=== PATIENT | female | born 1985 | race Caucasian/White ===

== ENCOUNTER 2016-08-12 13:23 | Emergency (ER) | payer SELFPAY ==
[~2016-08-12] VITALS: Ht 167.6 cm; Wt 138.8 kg
[~2016-08-12 13:23] MED LIST: ACYC200O4 PO; CALC-870 PO; CEFD300C3 PO; CPR500T PO; CTRZ10T PO; CYCL10TA9 PO; DIPH25CA79 PO; DOCU100C37 PO; FLUC150T PO; HYDR-1231 PO; HYDR-3004 PO; HYDR-3812 PO; HYDR-707 PO; HYDR118S10 PO; HYDR25CA5 PO; HYDR50TA76 PO; IBP600T1 PO; IBUP-1773 PO; LEVO750T6 PO; MAGN400T29 PO; MECL25TA56 PO; METR500T PO; NAPR-243 PO; NAPR220C11 PO; NITR-65 PO; NITR100C3 PO; OXYC-12 PO; PRED20TA PO; PREN-148 PO; PREN1TAB39 PO; PRM25T PO; PROM12.59 PO; SULF1TAB38 PO; TRM50T PO
--- OUTSIDE RECORDS SUMMARY | 2016-08-12 13:29 | XMS REPORT | Continuity of Care Document ---
Author Author Interface Organization Interface Address Unknown Phone Unavailable Problems Problem Status Onset Date Classification Date Reported Comments Source Final: Encounter for routine follow-up 12/04 [facility] Final: Other specified diseases and conditions complicating , childbirth and the puerperium 12/05/2015 [facility] Final: Localized edema 12/05/2015 [facility] Final: Diseases of the nervous system complicating the puerperium 12/05/2015 [facility] Final: Benign intracranial hypertension 12/05/2015 [facility] Obesity, unspecified(<content ID="[id number]">Confirmed</content>)<sup>1</sup > Active Problem 12/05/2015 Added based on documentation of BMI=55.3. [facility] Medications Medication Details Route Status Patient Instructions Ordering Provider Order Date Source Allergies, Adverse Reactions, Alerts Substance Category Reaction Severity Reaction type Status Date Reported Comments Source Adhesive Bandage Assertion Drug allergy [facility] Benzocaine Assertion Drug allergy [facility] cephalosporins Assertion Drug allergy [facility] Latex Assertion Drug allergy [facility] Macrobid Assertion Drug allergy [facility] penicillins Assertion Drug allergy [facility] sulfa drugs Assertion Drug allergy [facility] Immunizations Immunization Date Given Site Status Last Updated Comments Source No data available for this section No data available for this section [facility] Results Order Name Results Value Reference Range Date Interpretation Comments Source Urinalysis UA Bacteria 2+ </br>*ABN* </br>(11/30/15 2:14 PM) 11/29 [facility] Urinalysis UA WBC 5-10 /HPF 0 - 2 11/30/2015 [facility] Urinalysis UA Squam Epith 10- 25 /HPF 11/30/2015 [facility] Urinalysis UA RBC 10-25 /HPF 0 - 3 11/30/2015 [facility] Urinalysis UA Color Yellow </br>(11/30/15 2:14 PM) Yellow 11/30/2015 [facility] Urinalysis UA pH 5.5 </br>(11/30/15 2:14 PM) 4.5 - 8.0 11/30/2015 [facility] Urinalysis UA Appearance Sl Cldy </br>(11/30/15 2:14 PM) Clear 11/30/2015 [facility] Urinalysis UA Leuk Est Small </br>*ABN* </br>(11/30/15 2:14 PM) Negative 11/30/2015 [facility] Urinalysis UA Ketones Negative </br>(11/30/15 2:14 PM) Negative 11/30/2015 [facility] Urinalysis UA Glucose Negative </br>(11/30/15 2:14 PM) Negative 11/30/2015 [facility] Urinalysis UA Protein Negative </br>(11/30/15 2:14 PM) Negative 11/30/2015 [facility] Urinalysis UA Sp Grav 1.015 1.003 - 1.030 11/30/2015 [facility] Urinalysis UA Urobilinogen 0.2 mg/dL 0.2 - 1.0 2015 [facility] Urinalysis UA Nitrite Negative </br>(11/30/15 2:14 PM) Negative 11/30/2015 [facility] Urinalysis UA Bili Negative </br>(11/30/15 2:14 PM) Negative 11/30/2015 [facility] Urinalysis UA Blood Large </br>*ABN* </br>(11/30/15 2:14 PM) Negative 11/30/2015 [facility] US Doppler Venous Leg Bilat [id number] US Doppler Venous Leg Bilat [id number] Name: MARI EPPS Ultrasound Accession Number Exam Exam Date/Time Ordering Physician [id number] US Doppler Venous Leg 11/30/2015 14:50 CDT Toi Farooq B Bilat CPT code 63725 Reason For Exam (US Doppler Venous Leg Bilat) rule out DVT/ swelling/ edema Report _ Please refer to the Vascular section in Powerchart for full dictation. Final Report ELECTRONIC SIGNATURE Signed: 12.01.2015 08:36 Signed by: Libby Radiologist Technologist: Carri Cabezas ARDMS, RVT 11/30/2015 [facility] ANALYTICAL MANAGER Clinic Note ANALYTICAL MANAGER Clinic Note Patient: MARI EPPS Age: 30 years Sex: Female : 89 Associated Diagnoses: None Author: Elena Chaparro History of Present Illness S: Ms Epps is a 30 yo who delivered by on 11/26/15 at [facility] in [facility] with DR. Moffett and presents today for lower extremity swelling. She has noted mild, bilateral lower extremity swelling throughout her that has worsened postop. Edema is worse on the left than the right and persists despite elevation. Denies history of DVT. Reports incisional pain controlled with PO meds. Denies fever, SOB, orthopnea, vision changes, or upper quadrant pain. PNC at [place], [place]. Following concerns for congenital heart defects, her son was flown to [facility]. She is in [place] as he undergoes treatment. PMH: Intracranial Hypertension, on diamox but d/c due to PSH: 2 C-sections, cryocautery of cervix at 21. OB: - , term, birthweight 7.9lbs G2 - SAB G3 - , term, birthweight 10lbs, complicated by macrosomia. G4 - , term, birthweight 10lbs, complicated by macrosomia and polyhydramnios. Found to have congenital heart defects on delivery. Market Research Intern: Hx of HPV and Herpes, not on tx currently but was treated during . No h/o abn paps. So: Denies drugs, alcohol, tobacco use. Meds: colace, tylenol w/ codeine, and ibuprofen All: Macrobid, benzocaine, latex, PCN, cephalosporins, and sulfa drugs FH: Father has hx of CVA w/ IVC filter, mother has unknown cardiac condition, maternal aunt had blood clots from unknown etiology. Physical Examination VS/Measurements Vital Signs 11/30/15 14:02 Temperature Oral 97.7 DegF Heart Rate 88 bpm Resp. Rate 18 BRMIN Systolic BP 125 mmHg Diastolic BP 71 mmHg Gen: NAD CV: RRR Pulm: Clear to auscultation bilaterally Neuro: DTR bilateral patellar 2+, no clonus Abd: mild TTP along incisional site, no evidence of wound separation or hematoma Ext: 2+ edema in R LE extending to the knee, 3+ edema in L LE extending to the knee Review / Management Lower extremity doppler: Negative for DVT bilaterally Impression and Plan A/P: 30 yo s/p rLTCS on 11/25 1. Lower extremity edema - Lower extremity doppler negative for DVT bilaterally. - No evidence of cellulitis on exam. - BP initially elevated during repositioning, normal with appropriate technique and equipment. No symptoms or signs of preeclampsia. Return precautions given and symptoms of preeclampsia reviewed. - Symptoms most likely represent postoperative/ third spacing. Advised elevation and ambulation. Return for localized erythema, skin changes, or worsening symptoms. 2. Intracranial Hypertension - No current symptoms. Not on diuretic during . - Patient desires to follow with Neurology in [place]. Plans to establish care within the week. Declines to speak with [facility] Neurology at this time despite "ER" status and availability of consult. - Advised to return to the ER for severe headache. Pt seen by Cristiano IVEY Patient discussed and examined with Dr. Aide Chaparro MD PGY3 MFM Note Patient had no DVT. At [facility], calling to set up appointment with Neurology. I saw and examined the patient and agree with the plan above. Aide Meyer MD. 11/30/2015 [facility] Health Clinic Note Health Clinic Note PT NAME: Mari Epps ACCT: [id number] : 89 November 30, 2015 CHIEF COMPLAINT: This is a 30 year old female who presents for a follow-up exam. She is accompanied by her mother. HPI: She is status post repeat section delivery @ 37 weeks, 3/7 days in [place], [place] (per Dr. Moffett) on 11/26/2015 secondary to macrosomia and threatened labor. Patients PMH is significant for morbid obesity (BMI per H&P=53) and pseudotumor cerebri for which she was seen at in 2014. She presents today for follow-up visit and to discuss the restarting a diuretic. She complains of increased BLE edema, notes that her shoes and socks leave lines (on her legs) and that it is difficult to flex her BLE. She reports achiness in her BLE, otherwise denies pain or tenderness. She has been staying overnight in the [facility], and rests at the [facility] as her infant (Ayad Ellsworth) is in stable condition in the Intensive Care Nursery. She states that her incision seems to be healing well, denies concerns related to incision. Patient reports that she is not expressing breast milk, denies problems with cessation. She tells me that she chose not to breastfeed secondary to desire to restart pre- medications for pseudotumor cerebri. Patient denies SY, vision changes. Patient also denies RUQ or epigastric pain. Patient reports that she is taking pain medications, is taking IBU every 6 hours and takes tablet of hydrocodone every 2-3 hours; she denies pain at this time. Patient denies bowel/bladder symptoms; she reports small amount of vaginal bleeding. Patient has not been sexually active, planning Nexplanon placement at 6 weeks PP. She denies blues or depressive symptoms. Hgb on POD#1 was 9.4mg/dL. All other ROS not commented on or stated in HPI/PMH are unremarkable. ALLERGIES/ADVERSE REACTIONS: Adhesive bandage, benzocaine, cephalosporin, latex , macrobid, penicillin, sulfa CURRENT MEDICATIONS: Colace 100 mg PRN, IBU 600mg every 6 hours PRN, Hydrocodone /Acetaminophen 5/325mg tablet every 2-3 hours PRN Physical Exam: Vitals/Ht/Wt Current Weight: 152.1 kg Med Calc Weight: 152.1 kg Heart Rate: 71 bpm RespiratoryRate: 18 BR/min Oxygen Saturation: 99 % Cuff Monitored Blood Pressure: 137 mmHg / 82 mmHg Comfort History Comfort Assessment: Current pain Pain Characteristics: Patient able to report VAS Control: VAS Total Pain Calculation: 3 Pain Location: Leg, lower Pain Laterality: Bilateral Pain Description: Dull Pain Onset: 11/26/15 Pain Frequency: Constant Pain Aggravating Factors: Ambulating Pain Negatively Impacts: Daily life Pain Interventions: Elevate Visual Analogue Scale *Visual Analogue score: 3 General: Well-appearing, in no acute distress HEENT/Skin/Neuro: grossly intact Abdomen: soft, non-tender; anthony-incisional tissue with erythema along area consistent with adhesive tape related to surgery, per patient this is resolving ; incision healing well, without evidence of erythema, induration or exudate Extremities: BLE with pitting edema, without clonus, negative Homans sign, DTRs 1+/4 ASSESSMENT/PLAN: 1. 30 year old female, s/p repeat section delivery 2. 4 days 3. History of pseudotumor cerebri 4. Morbid obesity Reviewed self-care, healthy eating habits, physical activity, sleep hygiene, emotional well-being. Reviewed PE with Dr. Meyer, who also saw patient. Recommend that patient follow-up with a neurologist she has been seen at will send urgent referral to facilitate visit. Will send patient to [facility] for imaging of BLE due to patient report of discomfort and inability to flex extremities. Brielle Dowling, MSN, RN, TRUCK DRIVER RUBBISH COLLECTOR, INTERNAL MEDICINE PHYSICIAN ASSISTANT-BC Provider Name: Brielle Dowling RN, TRUCK DRIVER RUBBISH COLLECTOR</br> Electronically Signed On: 11/29 01:53 PM</br> 11/30/2015 Provider Name: Brielle Dowling RN, TRUCK DRIVER RUBBISH COLLECTOR Electronically Signed On: 11/30/15 01:53 PM [facility] Inpatient Clinical Summary < table cellspacing="1" cellpadding="0" width="95%"><colgroup><col width="35%"></ col><col width="35%"></col><col width="30%"></col></colgroup><tbody><tr><td align="left"><content styleCode="Bold">Title:</content>Inpatient Clinical Summary</td><td align="left"><content styleCode="Bold">Author:</content> Julee Ji</td><td align="left"><content styleCode="Bold">Date:</content>11/30/15</td></tr></tbody></table><table cellspacing="1" cellpadding="0" width= "95%"><tbody><tr><td>[facility] Patient Discharge Instructions Visit Information/Informacion de Visita Name/Nombre:MARI EPPS Date of /Fecha de Nacimiento: 1985 12:00 AM Current Date/Time/Fecha/Hora Actual: 11/30/15 16:11:21 Physicians/Medicos Clinic Provider/Proveedor de Clinica: Resident Provider: Toi Farooq Attending Provider: Mayo Crawford Discharge Diagnosis/Diagnstico al ser dado de drew: The [facility] would like to thank you for allowing us to assist you with your healthcare needs. The following includes patient education materials and information regarding your injury/illness. [facility] quisieran agradecerle por permitirnos ayudarlo con lillie necesidades sobre ochoa cuidado de sergio. A continuacin incluimos materiales para la educacin al paciente e informacin sobre ochoa alejandra/enfermedad. Discharge Arrangements Language Spoken: Guinean Bead Forming Machine Set Up Operator Needed at Discharge: No Discharge To, OB: Home independently Pain Present Upon Discharge: No Acuity, OB: Patient in stable condition at discharge DC Status IV Discontinued: N/A Rhogam Given?: N/A Medication List/Lista de Medicamentos Please take only the medications listed below/Por favor tome slo los medicamentos mostrados a continuacin Please contact your primary care physician to discuss all medications. Por favor comunquese con ochoa doctor de cabecera para discutir todos lillie medicamentos Additional Patient Information/Informacion Adicional del Paciente: Height: 5 ft 6 in Weight: 343 lb 15 oz Blood Pressure: 129/73 mmHg Future Orders Placed Today/Ordenes de Doctor Order Name Details Ordering Provider Discharge Patient Request Requested Start Date/Time: 11/30/15 15:46:00 Discharge Location: Home Discharge Diet: Regular Diet Discharge Activity: Activity As Tolerated Special Instructions: Return for temperature >100.4 degrees, vaginal bleeding greater than 2 maxi pads in 1 hour over 4 hours, abdominal pain, intractable nausea or vomiting, or other concerns. Bhupinder Leija If you haven't been contacted for an appointment within two weeks, please call for [facility] or for [facility]. Por favor llame al [facility] o [facility] , en sherri no lo hayan llamado dentro de dos semanas para darle caitlyn reuben. Your Upcoming Appointments/Lillie proximas citas Please bring all home medications to every visit with us at [facility]. Your safety and education around medications is our goal. (Prescription , non prescription and herbal supplements) Date Time Location Appointment Type Provider No Appointments found BONITA EPPSASIA has been given the following list of follow-up instructions, prescriptions, and patient education materials/ se le sy dado la siguiente lista de instrucciones de seguimiento, recetas y materiales de educacin al paciente: Patient Follow-up Information/Informacion de seguimiento del paciente Prescription leaflets, if any, will display below/ Si hay algunas recetas, se mostrarn a continuacin Patient Instructions/Instrucciones para el Paciente All smokers are encouraged to stop smoking. If you would like help, talk to your doctor or call The [place] Tobacco Quitline at 2-045-EZBW-NOW (7-823-406- 5950). If you have thoughts about committing suicide or otherwise hurting yourself, please call 911 or call Crisis Line at . Deep Vein Thrombosis A deep vein thrombosis (DVT) is a blood clot that develops in a deep vein. A DVT is a clot in the deep, larger veins of the leg, arm, or pelvis. These are more dangerous than clots that might form in veins near the surface of the body. A DVT can lead to complications if the clot breaks off and travels in the bloodstream to the lungs. A DVT can damage the valves in your leg veins, so that instead of flowing upwards, the blood pools in the lower leg. This is called post-thrombotic syndrome, and can result in pain, swelling, discoloration, and sores on the leg. Once identified, a DVT can be treated. It can also be prevented in some circumstances. Once you have had a DVT, you may be at increased risk for a DVT in the future. CAUSES Blood clots form in a vein for different reasons. Usually several things contribute to blood clots. Contributing factors include: The flow of blood slows down. The inside of the vein is damaged in some way. The person has a condition that makes blood clot more easily. Some people are more likely than others to develop blood clots. That is because they have more factors that make clots likely. These are called risk factors. Risk factors include: Older age, especially over 75 years old. Having a history of blood clots. This means you have had one before. Or, it means that someone else in your family has had blood clots. You may have a genetic tendency to form clots. Having major or lengthy surgery. This is especially true for surgery on the hip, knee, or belly (abdomen ). Hip surgery is particularly high risk. Breaking a hip or leg. Sitting or lying still for a long time. This includes long distance travel, paralysis, or recovery from an illness or surgery. Cancer, or cancer treatment. Having a long, thin tube (catheter ) placed inside a vein during a medical procedure. Being overweight (obese ). and childbirth. Hormone changes make the blood clot more easily during . The fetus puts pressure on the veins of the pelvis. There is also risk of injury to veins during delivery or a caesarean. The risk is at its highest just after childbirth. Medicines with the female hormone estrogen. This includes control pills and hormone replacement therapy. Smoking. Other circulation or heart problems. SYMPTOMS When a clot forms, it can either partially or totally block the blood flow in that vein. Symptoms of a DVT can include: Swelling of the leg or arm, especially if one side is much worse. Warmth and redness of the leg or arm, especially if one side is much worse. Pain in an arm or leg. If the clot is in the leg, symptoms may be more noticeable or worse when standing or walking. The symptoms of a DVT that has traveled to the lungs (pulmonary embolism, PE ) usually start suddenly, and include: Shortness of breath. Coughing. Coughing up blood or blood-tinged phlegm. Chest pain. The chest pain is often worse with deep breaths. Rapid heartbeat. Anyone with these symptoms should get emergency medical treatment right away. Call your local emergency services (911 in [place] if you have these symptoms. DIAGNOSIS If a DVT is suspected, your caregiver will take a full medical history and carry out a physical exam. Tests that also may be required include: Blood tests, including studies of the clotting properties of the blood. Ultrasonography to see if you have clots in your legs or lungs. X-rays to show the flow of blood when dye is injected into the veins ( venography ). Studies of your lungs, if you have any chest symptoms. PREVENTION Exercise the legs regularly. Take a brisk 30 minute walk every day. Maintain a weight that is appropriate for your height. Avoid sitting or lying in bed for long periods of time without moving your legs. Women, particularly those over the age of 35, should consider the risks and benefits of taking estrogen medicines, including control pills. Do not smoke, especially if you take estrogen medicines. Long distance travel can increase your risk of DVT. You should exercise your legs by walking or pumping the muscles every hour. In-hospital prevention: Many of the risk factors above relate to situations that exist with hospitalization, either for illness, injury, or elective surgery. Your caregiver will assess you for the need for venous thromboembolism prophylaxis when you are admitted to the hospital. If you are having surgery, your surgeon will assess you the day of or day after surgery. Prevention may include medical and nonmedical measures. TREATMENT Treatment for DVT helps prevent and disability. The most common treatment for DVT is blood thinning (anticoagulant ) medicine, which reduces the blood's tendency to clot. Anticoagulants can stop new blood clots from forming and old ones from growing. They cannot dissolve existing clots. Your body does this by itself over time. Anticoagulants can be given by mouth, by intravenous (IV) access, or by injection. Your caregiver will determine the best program for you. Heparin or related medicines (low molecular weight heparin) are usually the first treatment for a blood clot. They act quickly. However, they cannot be taken orally. Heparin can cause a fall in a component of blood that stops bleeding and forms blood clots (platelets ). You will be monitored with blood tests to be sure this does not occur. Warfarin is an anticoagulant that can be swallowed (taken orally ). It takes a few days to start working, so usually heparin or related medicines are used in combination. Once warfarin is working, heparin is usually stopped. Less commonly, clot dissolving drugs (thrombolytics ) are used to dissolve a DVT. They carry a high risk of bleeding, so they are used mainly in severe cases, where a life or limb is threatened. Very rarely, a blood clot in the leg needs to be removed surgically. If you are unable to take anticoagulants, your caregiver may arrange for you to have a filter placed in a main vein in your belly (abdomen ). This filter prevents clots from traveling to your lungs. HOME CARE INSTRUCTIONS Take all medicines prescribed by your caregiver. Follow the directions carefully. Warfarin. Most people will continue taking warfarin after hospital discharge. Your caregiver will advise you on the length of treatment (usually 3 6 months, sometimes lifelong). Too much and too little warfarin are both dangerous. Too much warfarin increases the risk of bleeding. Too little warfarin continues to allow the risk for blood clots. While taking warfarin, you will need to have regular blood tests to measure your blood clotting time. These blood tests usually include both the prothrombin time (PT) and international normalized ratio (INR) tests. The PT and INR results allow your caregiver to adjust your dose of warfarin. The dose can change for many reasons. It is critically important that you take warfarin exactly as prescribed, and that you have your PT and INR levels drawn exactly as directed. Many foods, especially foods high in vitamin K can interfere with warfarin and affect the PT and INR results. Foods high in vitamin K include spinach, kale , broccoli, cabbage, rhiannon and turnip greens, brussels sprouts, peas, cauliflower, seaweed, and parsley as well as beef and pork liver, green tea, and soybean oil. You should eat a consistent amount of foods high in vitamin K. Avoid major changes in your diet, or notify your caregiver before changing your diet. Arrange a visit with a dietitian to answer your questions. Many medicines can interfere with warfarin and affect the PT and INR results. You must tell your caregiver about any and all medicines you take, this includes all vitamins and supplements. Be especially cautious with aspirin and anti-inflammatory medicines. Ask your caregiver before taking these. Do not take or discontinue any prescribed or [id number] medicine except on the advice of your caregiver or pharmacist. Warfarin can have side effects, primarily excessive bruising or bleeding. You will need to hold pressure over cuts for longer than usual. Your caregiver or pharmacist will discuss other potential side effects. Alcohol can change the body's ability to handle warfarin. It is best to avoid alcoholic drinks or consume only very small amounts while taking warfarin. Notify your caregiver if you change your alcohol intake. Notify your dentist or other caregivers before procedures. Activity. Ask your caregiver how soon you can go back to normal activities. It is important to stay active to prevent blood clots. If you are on anticoagulant medicine, avoid contact sports. Exercise. It is very important to exercise. This is especially important while traveling, sitting or standing for long periods of time. Exercise your legs by walking or by pumping the muscles frequently. Take frequent walks. Compression stockings. These are tight elastic stockings that apply pressure to the lower legs. This pressure can help keep the blood in the legs from clotting. You may need to wear compressions stockings at home to help prevent a DVT. Smoking. If you smoke, quit. Ask your caregiver for help with quitting smoking. Learn as much as you can about DVT. Knowing more about the condition should help you keep it from coming back. Wear a medical alert bracelet or carry a medical alert card. SEEK MEDICAL CARE IF: You notice a rapid heartbeat. You feel weaker or more tired than usual. You feel faint. You notice increased bruising. You feel your symptoms are not getting better in the time expected. You believe you are having side effects of medicine. SEEK IMMEDIATE MEDICAL CARE IF: You have chest pain. You have trouble breathing. You have new or increased swelling or pain in one leg. You cough up blood. You notice blood in vomit, in a bowel movement, or in urine. MAKE SURE YOU: Understand these instructions. Will watch your condition. Will get help right away if you are not doing well or get worse. Document Released: 07/16/2006 Document Revised: 04/09/2013 Document Reviewed: [facility] Patient Information 2014 [employer]. Venous Thromboembolism, Prevention A venous thromboembolism is a blood clot that forms in a vein. A blood clot in a deep vein is called a deep venous thrombosis (DVT). A blood clot in the lungs is called a pulmonary embolism (PE). Blood clots are dangerous and can cause . Blood clots can form in the: Lungs. Legs. Arms. CAUSES A blood clot can form in a vein from different conditions. A blood clot can develop due to: Blood flow within a vein that is sluggish or very slow. Medical conditions that make the blood clot easily. Vein damage. RISK FACTORS Risk factors can increase your risk of developing a blood clot. Risk factors can include: Smoking. Obesity. Age. Immobility or sedentary lifestyle. Sitting or standing for long periods of time. Chronic or long-term bedrest. Medical or past history of blood clots. Family history of blood clots. Hip, leg, or pelvis injury or trauma. Major surgery, especially surgery on the hip, knee, or abdomen. and childbirth. control pills and hormone replacement therapy. Medical conditions such as Peripheral vascular disease (PVD). Diabetes. Cancer. SYMPTOMS Symptoms of VTE can depend on where the clot is located and if the clot breaks off and travels to another organ. Sometimes, there may be no symptoms. DVT symptoms can include: Swelling of the leg or arm, especially on one side. Warmth and redness of the leg or arm, especially on one side. Pain in an arm or leg. Leg pain may be more noticeable or worse when standing or walking. PE symptoms can include: Shortness of breath. Coughing. Coughing up blood or blood-tinged mucus (hemoptysis ). Chest pain or chest pain with deep breaths (pleuritic chest pain ). Apprehension, anxiety, or a feeling of impending doom. Rapid heartbeat. PREVENTION Exercise regularly. Take a brisk 30 minute walk every day. Staying active and moving around can help prevent blood clots. Avoid sitting or lying in bed for long periods of time. Change your position often, especially during a long trip. Women, especially those over the age of 35, should consider the risks and benefits of taking estrogen medicines. This includes control pills and hormone replacement therapy. Do not smoke, especially if you take estrogen medicines. If you smoke, talk to your caregiver on how to quit. Eat plenty of fruits and vegetables. Ask your caregiver or dietitian if there are foods you should avoid. Maintain a weight as suggested by your caregiver. Wear loose-fitting clothing. Avoid constrictive or tight clothing around your legs or waist. Try not to bump or injure your legs. Avoid crossing your legs when you are sitting. Do not use pillows under your knees unless told by your caregiver. Take all medicines that your caregiver prescribes you. Wear special stockings (compression stockings or LORENE hose) if your caregiver prescribes them. Wearing compression stockings (support hose) can make the leg veins more narrow. This increases blood flow in the legs and can help prevent blood clots. It is important to wear compression stockings correctly. Do not let them bunch up when you are wearing them. TRAVEL Long distance travel can increase the risk of a blood clot. To prevent a blood clot when traveling: You should exercise your legs by walking or by pumping your muscles every hour. To help prevent poor circulation on long trips, stand, stretch, and walk up and down the aisle of your airplane, train, or bus as often as possible to get the blood moving. Do squats if you are able. If you are unable to do squats, raise your foot on the balls of your feet and tighten your lower leg muscles (particularly the calve muscles) while seated. Pointing (flexing and extending) your toes while tightening your calves while seated are also good exercises to do every hour during long trips. They help increase blood flow and reduce risk of DVT. Stay well hydrated. Drink water regularly when traveling, especially when you are sitting or immobile for long periods of time. Use of drugs to prevent DVT during routine travel is not generally recommended. Before taking any drugs to reduce risk of DVT, consult your caregiver. SURGERY AND HOSPITALIZATION People who are at high risk for a blood clot may be given a blood thinning medicine (anticoagulant ) when they are hospitalized even if they are not going to have surgery. A long trip prior to surgery can increase the risk of a clot for patients undergoing hip and knee replacements. Talk to your caregiver about travel plans before your surgery. After hip or knee surgery, your caregiver may give you anticoagulants to help prevent blood clots. Anticoagulants may be given to people at high risk of developing thromboembolism, before, during, or sometimes after surgery, including people with clotting disorders or with a history of past thromboembolism. TRAVEL AFTER SURGERY In orthopedic surgery, the cutting of bones prompts the body to increase clotting factors in the blood. Due to the size of the bones involved in hip and knee replacements, there is a higher risk of blood clotting than other orthopedic surgeries. There is a risk of clotting for up to 46 weeks after surgery. Flying or traveling long distances can increase your risk of a clot. As a result, those who travel long distances may need additional preventive measures after their procedure. Drink only non-alcoholic beverages during your flight, train, or car travel. Alcohol can dehydrate you and increase your risk of getting blood clots. SEEK IMMEDIATE MEDICAL CARE IF: You develop chest pain. You develop severe shortness of breath. You have breathing problems after traveling. You develop swelling or pain in the leg. You begin to cough up bloody mucus or phlegm (sputum ). You feel dizzy or faint. Document Released: 07/04/2010 Document Revised: 04/09/2013 Document Reviewed: [facility] Patient Information 2014 [employer]. Take Charge of Your Health with [facility] Sign up today for [facility] for access to your health records 19/02. [facility] allows you to: Request an appointment Check your lab results Communicate with your providers and care team See provider notes from your visit View immunization records View current medication Sign up Today! Ask your healthcare provider or a [facility] associate for help, or email [email or web address]</td></tr></tbody></table> [facility] triage <table cellspacing="1" cellpadding="0" width="95%"><colgroup><col width="35%"></col>< col width="35%"></col><col width="30%"></col></colgroup><tbody><tr><td align= "left"><content styleCode="Bold">Title:</content> triage</td><td align ="left"><content styleCode="Bold">Author:</content>Elena Chaparro</td><td align ="left"><content styleCode="Bold">Date:</content>11/30/15</td></tr></tbody></table ><table cellspacing="1" cellpadding="0" width="95%"><tbody><tr><td> Patient: MARI EPPS Age: 30 years Sex: Female : 89 Associated Diagnoses: None Author: Elena Chaparro History of Present Illness S: Ms Epps is a 30 yo who delivered by on 11/26/15 at [facility] in [facility] with DR. Moffett and presents today for lower extremity swelling. She has noted mild, bilateral lower extremity swelling throughout her that has worsened postop. Edema is worse on the left than the right and persists despite elevation. Denies history of DVT. Reports incisional pain controlled with PO meds. Denies fever, SOB, orthopnea, vision changes, or upper quadrant pain. PNC at [place], [place]. Following concerns for congenital heart defects, her son was flown to [facility]. She is in [place] as he undergoes treatment. PMH: Intracranial Hypertension, on diamox but d/c due to PSH: 2 C-sections, cryocautery of cervix at 21. OB: - , term, birthweight 7.9lbs G2 - SAB G3 - , term, birthweight 10lbs, complicated by macrosomia. G4 - , term, birthweight 10lbs, complicated by macrosomia and polyhydramnios. Found to have congenital heart defects on delivery. Market Research Intern: Hx of HPV and Herpes, not on tx currently but was treated during . No h/o abn paps. So: Denies drugs, alcohol, tobacco use. Meds: colace, tylenol w/ codeine, and ibuprofen All: Macrobid, benzocaine, latex, PCN, cephalosporins, and sulfa drugs FH: Father has hx of CVA w/ IVC filter, mother has unknown cardiac condition, maternal aunt had blood clots from unknown etiology. Physical Examination VS/Measurements Vital Signs 11/30/15 14:02 Temperature Oral 97.7 DegF Heart Rate 88 bpm Resp. Rate 18 BRMIN Systolic BP 125 mmHg Diastolic BP 71 mmHg Gen: NAD CV: RRR Pulm: Clear to auscultation bilaterally Neuro: DTR bilateral patellar 2+, no clonus Abd: mild TTP along incisional site, no evidence of wound separation or hematoma Ext: 2+ edema in R LE extending to the knee, 3+ edema in L LE extending to the knee Review / Management Lower extremity doppler: Negative for DVT bilaterally Impression and Plan A/P: 30 yo s/p rLTCS on 11/25 1. Lower extremity edema - Lower extremity doppler negative for DVT bilaterally. - No evidence of cellulitis on exam. - BP initially elevated during repositioning, normal with appropriate technique and equipment. No symptoms or signs of preeclampsia. Return precautions given and symptoms of preeclampsia reviewed. - Symptoms most likely represent postoperative/ third spacing. Advised elevation and ambulation. Return for localized erythema, skin changes, or worsening symptoms. 2. Intracranial Hypertension - No current symptoms. Not on diuretic during . - Patient desires to follow with Neurology in [place]. Plans to establish care within the week. Declines to speak with [facility] Neurology at this time despite "ER" status and availability of consult. - Advised to return to the ER for severe headache. Pt seen by [facility] Patient discussed and examined with Dr. Aide Chaparro MD PGY3</td></tr></tbody></table><table cellspacing="1" cellpadding ="0" width="95%"><colgroup><col width="10%"></col><col width="90%"></col></ colgroup><tbody><tr><td>Addendum by Aide Meyer on December 01, 2015 13:00</td>< td>MFM Note Patient had no DVT. At [facility], calling to set up appointment with [facility]. I saw and examined the patient and agree with the plan above. Aide Meyer MD.</ td></tr></tbody></table> [facility] Vital Signs Vital Sign Value Date Comments Source Temperature Oral 97.7 [degF] 11/30/2015 [facility] Oxygen Therapy Room air </br>(11/30/15 2:02 PM) 11/30/2015 [facility] Resp. Rate 18 BRMIN 2015 [facility] Heart Rate 88 bpm 11/30/2015 [facility] Systolic BP 125 mmHg 2015 [facility] Diastolic BP 71 mmHg 2015 [facility] Systolic BP 129 mmHg 2015 [facility] Diastolic BP 73 mmHg 2015 [facility] Heart Rate 95 bpm 11/30/2015 [facility] Oxygen Therapy Room air </br>(11/30/15 2:09 PM) 11/30/2015 [facility] Respiratory Rate 18 BR/min [facility] Heart Rate 71 bpm 11/30/2015 [facility] Systolic Blood Pressure Cuff Monitored <content ID=' [id number]'>137</content>/<content ID='[id number]'>82</content> mm[Hg ] 11/30/2015 [facility] Current Weight 152.1 kg 11/29 [facility] Encounters Location Location Details Encounter Type Encounter Number Reason For Visit Attending Provider ADM Date DC Date Status Source [facility] OB Triage [id number] Mayo Mccartney 11/2912/01/2015 [facility] CLI [id number] Aide Meyer 11/30/2015 11/30/2015 Active [facility] Procedures Procedure Code Date Perfomer Comments Source No data available for this section [facility]
[2016-08-12] MEDS ORDERED: PRED5TAB PO (13:51)
[2016-08-12] MEDS ORDERED: DOXY100C2 PO (13:51)
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
[2016-08-12 13:53] VITALS: BP 0/0
== END 2016-08-12 13:53 | disposition home or self-care (01) ==
LOC: EDUNIT# 13:23 → ER 13:24
DX: H92.01 Otalgia, right ear (principal)
CPT/HCPCS: 99283

== ENCOUNTER 2016-11-07 03:02 | Emergency (ER) | payer SELFPAY ==
[~2016-11-07] VITALS: Ht 167.6 cm; Wt 138.3 kg
[~2016-11-07 03:02] MED LIST changes: +DOXY100C2 PO; +PRED5TAB PO
[2016-11-07] MEDS ORDERED: VILA20TA PO (03:18)
--- NOTE | 2016-11-07 03:43 | ED General ---
General Chief Complaint: Oral/Throat Problems Stated Complaint: SORE THROAT,FEVER 103.3,FREEZING IF SHE REMOVES Nursing Triage Note: fever/chills/sore throat x2 days. on abx. Nursing Sepsis Screen: No Definite Risk Source of Information: Patient Exam Limitations: No Limitations History of Present Illness Time Seen by Provider: 03:05 Initial Comments This 31-year-old woman presents to the emergency room with complaints of persistent fever with strep pharyngitis. She tested positive for strep in the clinic yesterday. She started azithromycin. She is frustrated that fever persists despite use of Tylenol and ibuprofen. She has been taking 1500 mg of Tylenol and 400 mg of ibuprofen with each dose. She is afebrile at present. Allergies and Home Medications Allergies Coded Allergies: Cephalosporins (Verified Allergy, Unknown, 11/26/15) Penicillins (Verified Allergy, Unknown, 09/23/07) adhesive (Verified Allergy, Unknown, 09/23/07) benzocaine (Verified Allergy, Unknown, 09/23/07) latex (Verified Allergy, Unknown, 09/23/07) nitrofurantoin (Verified Allergy, Unknown, 10/16/13) Home Medications Vilazodone Hydrochloride 20 Mg Tablet, 1 TAB PO UD, #25 (Reported) Constitutional: see HPI EENTM: see HPI Respiratory: no symptoms reported Cardiovascular: no symptoms reported Gastrointestinal: no symptoms reported Genitourinary: no symptoms reported Musculoskeletal: no symptoms reported Skin: no symptoms reported Psychiatric/Neurological: No Symptoms Reported Hematologic/Lymphatic: No Symptoms Reported Past Mzwluyo-Rdbkcv-Haiuah Hx Patient Social History Alcohol Use: Denies Use Recreational Drug Use: No Smoking Status: Never a Smoker 2nd Hand Smoke Exposure: No Recent Foreign Travel: No Contact w/Someone Who Travel: No Recent Infectious Disease Expo: No Recent Hopitalizations: No Immunizations Up To Date Tetanus Booster (TDap): Less than 5yrs Date of Pneumonia Vaccine: Apr 29, 2012 Date of Influenza Vaccine: May 20, 2015 Seasonal Allergies Seasonal Allergies: No Surgeries HX Surgeries: Yes (EXPLORATORY LAP FOR CYST, DISLOCATED left SHOULDER, cryotherapy on cervix, ) Surgeries: Appendectomy, Section, Orthopedic Respiratory Hx Respiratory Disorders: No Cardiovascular Hx Cardiac Disorders: No Neurological Hx Neurological Disorders: Yes Reproductive System : No Hx Reproductive Disorders: Yes Sexually Transmitted Disease: Yes (hpv in 2004) Genitourinary Hx Genitourinary Disorders: No Gastrointestinal Hx Gastrointestinal Disorders: No Musculoskeletal Hx Musculoskeletal Disorders: Yes (HX OF DISLOCATED SHOULDER) Endocrine Hx Endocrine Disorders: No HEENT HX ENT Disorders: No Cancer Hx Cancer: No Psychosocial Hx Psychiatric Problems: Yes ( depression) Behavioral Health Disorders: Anxiety, Depression Integumentary HX Skin/Integumentary Disorder: No Blood Transfusions Hx Blood Disorders: No Family Medical History Significant Family History: No Pertinent Family Hx Family Medial History: Alcoholism 03 FATHER 09 BROTHER Drug abuse 03 FATHER 09 BROTHER Family history: Hypertension Heart disease 03 MOTHER Hypertension 09 BROTHER Myocardial infarction 03 MOTHER Psychosocial problem 03 FATHER 03 MOTHER 09 BROTHER No Family History of: Abdominal aortic aneurysm Cancer Dementia Family history: Alzheimer's disease Family history: Arthritis Family history: Asthma Family history: Breast disease Family history: Cardiovascular disease Family history: Diabetes mellitus Family history: Gastrointestinal disease Family history: Osteoporosis Family history: Thyroid disorder Hereditary disease History of - respiratory disease Kidney disease Prostate cancer Psychotic disorder Seizure disorder Stroke Physical Exam Vital Signs Vital Sign - Last 12Hours 11/07/16 03:12 Temp 99.0 Pulse 136 Resp 18 B/P (MAP) 141/89 Pulse Ox 96 O2 Delivery Room Air Capillary Refill : Less Than 3 Seconds General Appearance: No Apparent Distress, WD/WN HEENT: PERRL/EOMI, TMs Normal, Normal ENT Inspection, Tonsillar Exudate, Tonsillar Enlargement Neck: Normal Inspection Respiratory: Lungs Clear, Normal Breath Sounds, No Accessory Muscle Use, No Respiratory Distress Cardiovascular: No Edema, No Murmur, Tachycardia Extremity: Normal Inspection, No Pedal Edema Neurologic/Psychiatric: Alert, Oriented x3, No Motor/Sensory Deficits, Normal Mood/Affect, popcorn candy maker II-XII Norm as Tested Skin: Normal Color, Warm/Dry Progress/Results/Core Measures Results/Orders Lab Results Laboratory Tests Test 11/07/16 03:25 Range/Units Monoscreen NEGATIVE NEGATIVE Micro Results Microbiology 11/07/16 Influenza Types A,B Antigen (SIMON) - Final, Complete My Orders Orders - BARAK CRYSTAL MD Monotest (11/07/16 03:14) Influenza A And B Antigens (11/07/16 03:14) Clindamycin Injection (Cleocin Injection (11/07/16 04:00) Clindamycin Injection (Cleocin Injection (11/07/16 04:15) Vital Signs/I&O Vital Sign - Last 12Hours 11/07/16 03:12 Temp 99.0 Pulse 136 Resp 18 B/P (MAP) 141/89 Pulse Ox 96 O2 Delivery Room Air Blood Pressure Mean: 106 Progress Note #1: Time: 03:42 Progress Note Tympanic temperature is afebrile on initial assessment. Patient is chilled and tachycardic. She would like additional testing to ensure she does not have concomitant mononucleosis or influenza. Progress Note #2: Time: 04:06 Progress Note Influenza and mono screens were negative. Patient was offered IM clindamycin to more aggressively treat her pharyngitis. She accepted and received clindamycin 900 mg IM. Departure Impression Impression: Primary Impression: Strep pharyngitis Additional Impression: Fever Qualified Codes: R50.9 - Fever, unspecified Disposition: 01 HOME, SELF-CARE Condition: Improved Departure-Patient Inst. Decision time for Depature: 03:25 Referrals: [facility] (PCP/Family) Primary Care Physician Patient Instructions: Strep Throat (DC) Add. Discharge Instructions: Complete azithromycin as prescribed. 4 fever you may take ibuprofen up to 600 mg every 6 hours as needed and/or Tylenol (acetaminophen) up to 1000 mg every 6 hours as needed. Do not exceed the recommended doses. Follow-up with your primary care provider later today if not improving or symptoms worsen. Cool moist compresses and drinking cool fluids should help with fever as well. Avoid excessive covers. All discharge instructions reviewed with patient and/or family. Voiced understanding. BARAK CRYSTAL MD Nov 07, 2016 03:43
[2016-11-07] MEDS ORDERED: CLINDAMYCIN 600 MG/4ML (CLEOCIN) VIAL IM ONE (04:00)
[2016-11-07] MEDS ORDERED: CLINDAMYCIN 300 MG/2ML (CLEOCIN) VIAL IM ONE (04:15)
[2016-11-07 04:23] VITALS: BP 114/74
== END 2016-11-07 04:23 | disposition home or self-care (01) ==
LOC: EDUNIT# 03:02 → ER 03:04
DX: J02.0 Streptococcal pharyngitis (principal); R50.9 Fever, unspecified
CPT/HCPCS: 36415; 86308; 87804; 96372; 99283

== ENCOUNTER 2017-02-19 13:52 | Emergency (ER) | payer SELFPAY ==
[~2017-02-19] VITALS: Ht 165.1 cm; Wt 127.0 kg
[~2017-02-19 13:52] MED LIST changes: +VILA20TA PO
[2017-02-19 15:34] LABS: BASOPHILS % (AUTO) 0 % (0-10); EOSINOPHILS # (AUTO) 0.3 10^3/uL (0.0-0.3); EOSINOPHILS % (AUTO) 2 % (0-10); LYMPHOCYTES # (AUTO) 1.9 X 10^3 (1.0-4.0); LYMPHOCYTES % (AUTO) 12 % (12-44); MEAN CORPUSCULAR HEMOGLOBIN 27 PG (25-34); MEAN CORPUSCULAR HGB CONC 32 G/DL (32-36); MEAN CORPUSCULAR VOLUME 84 FL (80-99); MEAN PLATELET VOLUME 10.4 FL (7.4-10.4); MONOCYTES # (AUTO) 0.8 X 10^3 (0.0-1.0); MONOCYTES % (AUTO) 6 % (0-12); NEUTROPHILS # (AUTO) 12.2 X 10^3 (1.8-7.8); NEUTROPHILS % (AUTO) 80 % (42-75); PLATELET COUNT 318 10^3/uL (130-400); RED BLOOD COUNT 4.97 10^6/uL (4.35-5.85); RED CELL DISTRIBUTION WIDTH 14.2 % (10.0-14.5); WHITE BLOOD COUNT 15.2 10^3/uL (4.3-11.0)
[2017-02-19] MEDS ORDERED: ORPHENADRINE 60 MG/2 ML (NORFLEX) AMP IM STA (15:40)
[2017-02-19] MEDS ORDERED: diphenhydrAMINE 50 MG/ML INJ (BENADRYL) IV STA (15:40)
[2017-02-19] MEDS ORDERED: NS IV 1000 ML 1,000 ML IV ONE (15:40)
[2017-02-19] MEDS ORDERED: KETOROLAC 30 MG/ML VIAL IVP STA (15:40)
--- NOTE | 2017-02-19 15:44 | ED General ---
General Chief Complaint: General Problems/Pain Stated Complaint: THINKS SHE IS DEHYDRATED Nursing Triage Note: PT TO ROOM 5 PER W/C WAS HAVING UNSTEADY GAIT IN WAITING ROOM. PT CO OF BEING DEHYDRATED Nursing Sepsis Screen: No Definite Risk Source of Information: Patient Exam Limitations: No Limitations History of Present Illness Time Seen by Provider: 15:30 Allergies and Home Medications Allergies Coded Allergies: Cephalosporins (Verified Allergy, Unknown, 11/26/15) Penicillins (Verified Allergy, Unknown, 09/23/07) adhesive (Verified Allergy, Unknown, 09/23/07) benzocaine (Verified Allergy, Unknown, 09/23/07) latex (Verified Allergy, Unknown, 09/23/07) nitrofurantoin (Verified Allergy, Unknown, 10/16/13) Past Jxwqhfl-Wlupow-Tupoeq Hx Patient Social History Alcohol Use: Denies Use Recreational Drug Use: No Smoking Status: Never a Smoker 2nd Hand Smoke Exposure: No Recent Foreign Travel: No Contact w/Someone Who Travel: No Recent Infectious Disease Expo: No Recent Hopitalizations: No Immunizations Up To Date Tetanus Booster (TDap): Less than 5yrs Date of Pneumonia Vaccine: Apr 29, 2012 Date of Influenza Vaccine: May 20, 2015 Seasonal Allergies Seasonal Allergies: No Surgeries HX Surgeries: Yes (EXPLORATORY LAP FOR CYST, DISLOCATED left SHOULDER, cryotherapy on cervix, ) Surgeries: Appendectomy, Section, Orthopedic Respiratory Hx Respiratory Disorders: No Cardiovascular Hx Cardiac Disorders: No Neurological Hx Neurological Disorders: Yes Reproductive System Hx Reproductive Disorders: Yes Sexually Transmitted Disease: Yes (hpv in 2004) Genitourinary Hx Genitourinary Disorders: No Gastrointestinal Hx Gastrointestinal Disorders: No Musculoskeletal Hx Musculoskeletal Disorders: Yes (HX OF DISLOCATED SHOULDER) Endocrine Hx Endocrine Disorders: No HEENT HX ENT Disorders: No Cancer Hx Cancer: No Psychosocial Hx Psychiatric Problems: Yes ( depression) Behavioral Health Disorders: Anxiety, Depression Integumentary HX Skin/Integumentary Disorder: No Blood Transfusions Hx Blood Disorders: No Family Medical History Significant Family History: No Pertinent Family Hx Family Medial History: Alcoholism 03 FATHER 09 BROTHER Drug abuse 03 FATHER 09 BROTHER Family history: Hypertension Heart disease 03 MOTHER Hypertension 09 BROTHER Myocardial infarction 03 MOTHER Psychosocial problem 03 FATHER 03 MOTHER 09 BROTHER No Family History of: Abdominal aortic aneurysm Cancer Dementia Family history: Alzheimer's disease Family history: Arthritis Family history: Asthma Family history: Breast disease Family history: Cardiovascular disease Family history: Diabetes mellitus Family history: Gastrointestinal disease Family history: Osteoporosis Family history: Thyroid disorder Hereditary disease History of - respiratory disease Kidney disease Prostate cancer Psychotic disorder Seizure disorder Stroke Physical Exam Vital Signs Vital Sign - Last 12Hours 02/19/17 14:00 Temp 97.9 Pulse 109 Resp 18 B/P (MAP) 149/103 Capillary Refill : Less Than 3 Seconds Progress/Results/Core Measures Results/Orders Lab Results Laboratory Tests Test 02/19/17 14:11 02/19/17 14:20 02/19/17 15:15 Range/Units Glucometer 100 70-110 MG/DL White Blood Count 15.2 H 4.3-11.0 10^3/uL Red Blood Count 4.97 4.35-5.85 10^6/uL Hemoglobin 13.5 11.5-16.0 G/DL Hematocrit 42 35-52 % Mean Corpuscular Volume 84 80-99 FL Mean Corpuscular Hemoglobin 27 25-34 PG Mean Corpuscular Hemoglobin Concent 32 32-36 G/DL Red Cell Distribution Width 14.2 10.0-14.5 % Platelet Count 318 130-400 10^3/uL Mean Platelet Volume 10.4 7.4-10.4 FL Neutrophils (%) (Auto) 80 H 42-75 % Lymphocytes (%) (Auto) 12 12-44 % Monocytes (%) (Auto) 6 0-12 % Eosinophils (%) (Auto) 2 0-10 % Basophils (%) (Auto) 0 0-10 % Neutrophils # (Auto) 12.2 H 1.8-7.8 X 10^3 Lymphocytes # (Auto) 1.9 1.0-4.0 X 10^3 Monocytes # (Auto) 0.8 0.0-1.0 X 10^3 Eosinophils # (Auto) 0.3 0.0-0.3 10^3/uL Basophils # (Auto) 0.0 0.0-0.1 10^3/uL Neutrophils % (Manual) 79 % Lymphocytes % (Manual) 17 % Monocytes % (Manual) 1 % Eosinophils % (Manual) 3 % Basophils % (Manual) 0 % Band Neutrophils 0 % Blood Morphology Comment NORMAL Sodium Level 133 L 135-145 MMOL/L Potassium Level 4.0 3.6-5.0 MMOL/L Chloride Level 98 98-107 MMOL/L Carbon Dioxide Level 28 21-32 MMOL/L Anion Gap 7 5-14 MMOL/L Blood Urea Nitrogen 7 7-18 MG/DL Creatinine 0.82 0.60-1.30 MG/DL Estimat Glomerular Filtration Rate > 60 BUN/Creatinine Ratio 9 Glucose Level 97 70-105 MG/DL Calcium Level 9.3 8.5-10.1 MG/DL Total Bilirubin 1.7 H 0.1-1.0 MG/DL Aspartate Amino Transf (AST/SGOT) 19 5-34 U/L Alanine Aminotransferase (ALT/SGPT) 24 0-55 U/L Alkaline Phosphatase 97 40-136 U/L Total Protein 7.9 6.4-8.2 GM/DL Albumin 4.3 3.2-4.5 GM/DL Serum Alcohol < 10 <10 MG/DL Urine Color YELLOW Urine Clarity CLEAR Urine pH 7 5-9 Urine Specific [place] 1.005 L 1.016-1.022 Urine Protein NEGATIVE NEGATIVE Urine Glucose (UA) NEGATIVE NEGATIVE Urine Ketones NEGATIVE NEGATIVE Urine Nitrite NEGATIVE NEGATIVE Urine Bilirubin NEGATIVE NEGATIVE Urine Urobilinogen NORMAL NORMAL MG/DL Urine Leukocyte Esterase NEGATIVE NEGATIVE Urine RBC (Auto) NEGATIVE NEGATIVE Urine RBC NONE /HPF Urine WBC 0-2 /HPF Urine Squamous Epithelial Cells 10-25 H /HPF Urine Crystals NONE /LPF Urine Bacteria FEW H /HPF Urine Casts NONE /LPF Urine Mucus NEGATIVE /LPF Urine Culture Indicated NO Urine Opiates Screen NEGATIVE NEGATIVE Urine Oxycodone Screen NEGATIVE NEGATIVE Urine Methadone Screen NEGATIVE NEGATIVE Urine Propoxyphene Screen NEGATIVE NEGATIVE Urine Barbiturates Screen NEGATIVE NEGATIVE Ur Tricyclic Antidepressants Screen POSITIVE H NEGATIVE Urine Phencyclidine Screen NEGATIVE NEGATIVE Urine Amphetamines Screen NEGATIVE NEGATIVE Urine Methamphetamines Screen NEGATIVE NEGATIVE Urine Benzodiazepines Screen NEGATIVE NEGATIVE Urine Cocaine Screen NEGATIVE NEGATIVE Urine Cannabinoids Screen NEGATIVE NEGATIVE My Orders Orders - BOBBY SCHMITZ Cbc With Automated Diff (02/19/17 15:28) Comprehensive Metabolic Panel (02/19/17 15:28) Ua Culture If Indicated (02/19/17 15:28) Saline Lock/Iv-Start (02/19/17 15:28) Urine Bedside (02/19/17 15:28) Alcohol (02/19/17 15:29) Drug Screen Stat (Urine) (02/19/17 15:29) Manual Differential (02/19/17 14:20) Ct Head Wo (02/19/17 15:40) Ketorolac Injection (Toradol Injection) (02/19/17 15:40) Orphenadrine Injection (Norflex Injectio (02/19/17 15:40) Ns Iv 1000 Ml (Sodium Chloride 0.9%) (02/19/17 15:40) Ondansetron Injection (Zofran Injectio (02/19/17 15:45) Diphenhydramine Injection (Benadryl Inje (02/19/17 15:40) Medications Given in ED Current Medications Medications Dose Ordered Sig/Sri Route Start Time Stop Time Status Last Admin Dose Admin Ondansetron HCl 4 mg ONCE ONCE IVP 02/19/17 15:45 02/19/17 15:46 DC 02/19/17 16:39 4 MG Sodium Chloride 1,000 ml @ 0 mls/hr Q0M ONCE IV 02/19/17 15:40 02/19/17 15:42 DC 02/19/17 16:38 1,000 MLS/HR Vital Signs/I&O Vital Sign - Last 12Hours 02/19/17 14:00 Temp 97.9 Pulse 109 Resp 18 B/P (MAP) 149/103 Blood Pressure Mean: 118 Departure Impression Impression: Primary Impression: Migraine headache Additional Impression: Volume depletion Disposition: 01 HOME, SELF-CARE Condition: Improved Departure-Patient Inst. Decision time for Depature: 19:05 Referrals: [facility] (PCP/Family) Primary Care Physician Patient Instructions: Migraine Headache (DC) Add. Discharge Instructions: All discharge instructions reviewed with patient and/or family. Voiced understanding. Medications as instructed. Ibuprofen 800 mg by mouth every 8 hours as needed for pain. Drink plenty of fluids. Rest. Avoid the heat. Follow-up with your primary care physician for recheck as an outpatient. Return to the emergency department for worsened symptoms or any other concerns. Scripts Butalb/Acetaminophen/Caffeine (Fioricet 50-300-40 mg Capsule) 1 Each Capsule 1 EACH PO Q6H Y for HEADACHE, #14 CAP 0 Refills Prov: BOBBY SCHMITZ 02/19/17 BOBBY SCHMITZ Feb 19, 2017 15:44
[2017-02-19] MEDS ORDERED: ONDANSETRON 4 MG/2 ML (SDV) Z0FRAN IVP ONE (15:45)
[2017-02-19 15:47] LABS: ALANINE AMINOTRANSFERASE 24 U/L (0-55); ALBUMIN 4.3 GM/DL (3.2-4.5); ALCOHOL < 10 MG/DL (<10); ANION GAP 7 MMOL/L (5-14); ASPARTATE AMINO TRANSFERASE 19 U/L (5-34); BILIRUBIN,TOTAL 1.7 MG/DL (0.1-1.0); BLOOD UREA NITROGEN 7 MG/DL (7-18); BUN/CREATININE RATIO 9; CALCIUM 9.3 MG/DL (8.5-10.1); CARBON DIOXIDE 28 MMOL/L (21-32); CHLORIDE 98 MMOL/L (98-107); CREATININE SERUM 0.82 MG/DL (0.60-1.30); GFR ESTIMATED > 60; GLUCOSE 97 MG/DL (70-105); SODIUM 133 MMOL/L (135-145); TOTAL PROTEIN 7.9 GM/DL (6.4-8.2)
[2017-02-19 16:13] LABS: BAND NEUTROPHILS 0 %; BASOPHILS % (MANUAL) 0 %; EOSINOPHILS % (MANUAL) 3 %; LYMPHOCYTES % (MANUAL) 17 %; NEUTROPHILS % (MANUAL) 79 %
--- NOTE | 2017-02-19 16:20 | Diagnostic Imaging Report ---
PROCEDURE: CT head without contrast. TECHNIQUE: Multiple contiguous axial images were obtained through the brain without the use of intravenous contrast. INDICATION: Visual disturbance and head pain. CT HEAD: Multiple contiguous axial CT images of the head were obtained. FINDINGS: Ventricles and sulci are within normal limits for size. There is no intracranial hemorrhage identified. There is no abnormal mass effect or shift of midline structures. IMPRESSION: Unremarkable CT of the head. Dictated by: Dictated on workstation # [id number]
[2017-02-19 17:30] LABS: BILIRUBIN,URINE NEGATIVE (NEGATIVE); KETONES,URINE NEGATIVE (NEGATIVE); LEUKOCYTE ESTERASE ,URINE NEGATIVE (NEGATIVE); NITRITE,URINE NEGATIVE (NEGATIVE); PH,URINE 7 (5-9); PROTEIN,URINE NEGATIVE (NEGATIVE); UROBILINOGEN,URINE NORMAL (NORMAL)
[2017-02-19 17:52] LABS: WBC,URINE 0-2 /HPF
[2017-02-19] MEDS ORDERED: BUTA1CAP39 PO (19:06)
[2017-02-19] MEDS ORDERED: HYDROcodone/APAP 7.5 MG/325 MG (LORTAB, LORCET PLUS) TABLET PO STA (19:06)
[2017-02-19 19:20] VITALS: BP 129/87
== END 2017-02-19 19:19 | disposition home or self-care (01) ==
LOC: EDUNIT# 13:52 → ER 13:54
DX: G43.909 Migraine, unspecified, not intractable, without status migrainosus (principal); E86.9 Volume depletion, unspecified; F41.9 Anxiety disorder, unspecified; F32.9 Major depressive disorder, single episode, unspecified; Z87.828 Personal history of other (healed) physical injury and trauma; Z90.49 Acquired absence of other specified parts of digestive tract; Z86.19 Personal history of other infectious and parasitic diseases
CPT/HCPCS: 36415; 70450; 80053; 80306; 80320; 81000; 82962; 84703; 85007; 85027; 96361; 96372; 96374; 96375

== ENCOUNTER → 2018-04-06 | Outpatient (CLI) | payer MEDICAID ==
[~2018-04-06] MED LIST changes: +ACHD5005 PO; +BUTA1CAP39 PO; -HYDR-3812 PO
[2018-04-06] MEDS: GADOBUTROL 15 MMOL/15 ML (GADAVIST) VIAL IV ONE (11:01)
--- NOTE | 2018-04-06 11:34 | Diagnostic Imaging Report ---
PROCEDURE: MR imaging of the brain with and without contrast. TECHNIQUE: Multiplanar, multisequence MR imaging of the brain was performed with and without contrast. INDICATION: Idiopathic intracranial hypertension. Migraines. COMPARISON: CT head without contrast 02/19/2017. FINDINGS: No abnormal intracranial signal or enhancement. No restricted water diffusion or hemosiderin deposition. Normal morphology including the major midline structures, sella, posterior fossa and cerebellar pontine angle. The orbits are unremarkable on this nondedicated exam. Normal intracranial flow voids. No hydrocephalus or extra-axial fluid collections. Mild mucosal thickening throughout the paranasal sinuses. No air-fluid levels. The mastoids are clear. Normal bone marrow signal. IMPRESSION: 1. Normal MRI of the brain without and with IV contrast. 2. Mild mucosal thickening in the paranasal sinuses without air-fluid levels. Dictated by: Dictated on workstation # [id number]
== END ==
LOC: RAD 10:15
PROVIDERS: ATTEND Psychiatry & Neurology Neurology
DX: G93.2 Benign intracranial hypertension (principal); J34.89 Other specified disorders of nose and nasal sinuses
CPT/HCPCS: 70553

== ENCOUNTER 2018-05-29 20:50 | Outpatient (CLI) | payer MEDICAID | END 2018-05-30 07:07 | disposition home or self-care (01) | LOC: SLEEP 20:50 | PROVIDERS: ATTEND Surgery | DX: G47.10 Hypersomnia, unspecified (principal); R06.83 Snoring; F32.9 Major depressive disorder, single episode, unspecified; E66.9 Obesity, unspecified; Z98.84 Bariatric surgery status | CPT/HCPCS: 95810 ==

== ENCOUNTER 2019-04-06 06:52 | Emergency (ER) | payer MEDICAID ==
[~2019-04-06] VITALS: Ht 167.6 cm; Wt 87.1 kg
[~2019-04-06 06:52] MED LIST changes: +PROM12.511 PO; -PROM12.59 PO
[2019-04-06 07:47] LABS: CLARITY,URINE SLIGHTLY CLOUDY; COLOR,URINE AMBER; GLUCOSE, URINE (UA) NEGATIVE (NEGATIVE); KETONES,URINE 2+ (NEGATIVE); LEUKOCYTE ESTERASE ,URINE 2+ (NEGATIVE); NITRITE,URINE POSITIVE (NEGATIVE); PH,URINE 5 (5-9); PROTEIN,URINE 2+ (NEGATIVE); UROBILINOGEN,URINE 8 MG/DL (NORMAL)
[2019-04-06 07:56] LABS: BACTERIA,URINE FEW /HPF; BILIRUBIN,URINE 2+ (NEGATIVE); WBC,URINE 25-50 /HPF
[2019-04-06] MEDS ORDERED: ONDANSETRON 4 MG/2 ML (SDV) Z0FRAN IVP ONE (08:00)
[2019-04-06] MEDS ORDERED: NS IV 1000 ML 1,000 ML IV SCH (08:00)
[2019-04-06] MEDS ORDERED: fentaNYL INJECTION 100 MCG/2 ML AMP IVP ONE (08:00)
--- NOTE | 2019-04-06 08:04 | ED GI ---
General Chief Complaint: Abdominal/GI Problems Stated Complaint: RIB PAIN Nursing Triage Note: Pt c/o R sided abdominal pain that has persisted for 1.5 weeks. Pt reports, "It feels like someone is stabbing me with a knife." Pt reports pain caused pt to vomit twice last night. Pt also reports, "Sensation of feeling like I have to urinate more than what is coming out." Sepsis Screen: No Definite Risk Source of Information: Patient Exam Limitations: No Limitations History of Present Illness Date Seen by Provider: Apr 06, 2019 Time Seen by Provider: 08:00 Initial Comments This 33-year-old white female presents with a complaint of right upper quadrant pain present for the past week. The patient's pain is sharp and severe. There is associated nausea. The pain is not relieved or exacerbated by food or movement. Patient had multiple abdominal surgeries including an appendectomy, tubal ligation, and gastric sleeve procedure with a secondary reversal. Patient's lastwas week ago. Patient denies associated fever, chills, productive cough, or shortness of breath. Patient has had no black or tarry stools. She denies hematemesis. There is a family history of gallbladder disease. Allergies and Home Medications Allergies Coded Allergies: Cephalosporins (Verified Allergy, Unknown, 11/26/15) Penicillins (Verified Allergy, Unknown, 09/23/07) adhesive (Verified Allergy, Unknown, 09/23/07) benzocaine (Verified Allergy, Unknown, 09/23/07) latex (Verified Allergy, Unknown, 09/23/07) nitrofurantoin (Verified Allergy, Unknown, 10/16/13) Home Medications Butalb/Acetaminophen/Caffeine 1 Each Capsule, 1 EACH PO Q6H PRN for HEADACHE Prescribed by: BOBBY SCHMITZ on 02/19/17 1906 Patient Home Medication List Home Medication List Reviewed: Yes Review of Systems Review of Systems Constitutional: No chills; dizziness; No fever; malaise EENTM: No Blurred Vision Respiratory: Denies Cough, Denies Shortness of Air Cardiovascular: Denies Chest Pain Gastrointestinal: Abdominal Pain (right upper quadrant), Nausea Genitourinary: Burning, Frequency Musculoskeletal: back pain (right flank) Skin: No rash Psychiatric/Neurological: No Symptoms Reported Endocrine: No Symptoms Reported Hematologic/Lymphatic: No Symptoms Reported Past Vmsoyyc-Cbtfzu-Iyptfd Hx Past Med/Social Hx: Reviewed Nursing Past Med/Soc Hx Patient Social History Alcohol Use: Occasionally Uses Recreational Drug Use: No Smoking Status: Never a Smoker 2nd Hand Smoke Exposure: No Recent Foreign Travel: No Contact w/Someone Who Travel: No Recent Infectious Disease Expo: No Recent Hopitalizations: No Physical Abuse: No Sexual Abuse: No Immunizations Up To Date Tetanus Booster (TDap): Less than 5yrs Date of Pneumonia Vaccine: Apr 29, 2012 Date of Influenza Vaccine: May 20, 2015 Seasonal Allergies Seasonal Allergies: No Past Medical History Surgeries: Yes (EXPLORATORY LAP FOR CYST, DISLOCATED left SHOULDER, cryotherapy on cervix, ) Abdominal, Appendectomy, Section, Orthopedic Respiratory: No Cardiac: No Neurological: Yes Headaches /Migraines Last Menstrual Period: Mar 31, 2019 Reproductive Disorders: Yes Sexually Transmitted Disease: Yes (hpv in 2005) 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) Musculoskeletal: Yes (HX OF DISLOCATED SHOULDER) Endocrine: No Cancer: No Psychosocial: Yes ( depression) Anxiety, Depression Integumentary: No Blood Disorders: No Family Medical History Alcoholism 03 FATHER 09 BROTHER Drug abuse 03 FATHER 09 BROTHER Family history: Hypertension Heart disease 03 MOTHER Hypertension 09 BROTHER Myocardial infarction 03 MOTHER Psychosocial problem 03 FATHER 03 MOTHER 09 BROTHER No Family History of: Abdominal aortic aneurysm Cancer Dementia Family history: Alzheimer's disease Family history: Arthritis Family history: Asthma Family history: Breast disease Family history: Cardiovascular disease Family history: Diabetes mellitus Family history: Gastrointestinal disease Family history: Osteoporosis Family history: Thyroid disorder Hereditary disease History of - respiratory disease Kidney disease Prostate cancer Psychotic disorder Seizure disorder Stroke No Pertinent Family Hx Physical Exam Vital Signs Vital Signs - First Documented 04/06/19 07:02 Temp 97.1 Pulse 80 Resp 18 B/P (MAP) 127/98 (108) Pulse Ox 98 O2 Delivery Room Air Capillary Refill : Less Than 3 Seconds Height/Weight/BMI Height: 5'6.00" Weight: 192lbs. 0.0oz. 87.252344fc; 53.3 BMI Method:Stated General Appearance: WD/WN, moderate distress HEENT: normal ENT inspection Neck: full range of motion, normal inspection Respiratory: chest non-tender, lungs clear, normal breath sounds, no respiratory distress Cardiovascular: normal peripheral pulses, regular rate, rhythm, no murmur Gastrointestinal: abnormal bowel sounds (hypoactive bowel sounds), tenderness (right upper quadrant) Extremities: normal range of motion, non-tender, normal inspection Back: normal inspection, no CVA tenderness Neurologic/Psychiatric: no motor/sensory deficits, alert, normal mood/affect Skin: normal color, warm/dry Progress/Results/Core Measures Results/Orders Lab Results Laboratory Tests Test 04/06/19 07:15 04/06/19 07:20 Range/Units Urine Color BRITTNEY H Urine Clarity SLIGHTLY CLOUDY Urine pH 5 5-9 Urine Specific [place] 1.030 H 1.016-1.022 Urine Protein 2+ H NEGATIVE Urine Glucose (UA) NEGATIVE NEGATIVE Urine Ketones 2+ H NEGATIVE Urine Nitrite POSITIVE H NEGATIVE Urine Bilirubin 2+ H NEGATIVE Urine Urobilinogen 8 H NORMAL MG/DL Urine Leukocyte Esterase 2+ H NEGATIVE Urine RBC (Auto) 4+ H NEGATIVE Urine RBC NONE /HPF Urine WBC 25-50 H /HPF Urine Squamous Epithelial Cells 5-10 /HPF Urine Crystals NONE /LPF Urine Bacteria FEW H /HPF Urine Casts NONE /LPF Urine Mucus MODERATE H /LPF Urine Culture Indicated YES White Blood Count 8.9 4.3-11.0 10^3/uL Red Blood Count 4.35 4.35-5.85 10^6/uL Hemoglobin 12.4 11.5-16.0 G/DL Hematocrit 38 35-52 % Mean Corpuscular Volume 88 80-99 FL Mean Corpuscular Hemoglobin 29 25-34 PG Mean Corpuscular Hemoglobin Concent 32 32-36 G/DL Red Cell Distribution Width 13.4 10.0-14.5 % Platelet Count 330 130-400 10^3/uL Mean Platelet Volume 10.9 H 7.4-10.4 FL Neutrophils (%) (Auto) 58 42-75 % Lymphocytes (%) (Auto) 34 12-44 % Monocytes (%) (Auto) 6 0-12 % Eosinophils (%) (Auto) 3 0-10 % Basophils (%) (Auto) 0 0-10 % Neutrophils # (Auto) 5.1 1.8-7.8 X 10^3 Lymphocytes # (Auto) 3.0 1.0-4.0 X 10^3 Monocytes # (Auto) 0.5 0.0-1.0 X 10^3 Eosinophils # (Auto) 0.2 0.0-0.3 10^3/uL Basophils # (Auto) 0.0 0.0-0.1 10^3/uL Sodium Level 138 135-145 MMOL/L Potassium Level 3.3 L 3.6-5.0 MMOL/L Chloride Level 103 98-107 MMOL/L Carbon Dioxide Level 25 21-32 MMOL/L Anion Gap 10 5-14 MMOL/L Blood Urea Nitrogen 8 7-18 MG/DL Creatinine 0.76 0.60-1.30 MG/DL Estimat Glomerular Filtration Rate > 60 BUN/Creatinine Ratio 11 Glucose Level 82 70-105 MG/DL Calcium Level 9.5 8.5-10.1 MG/DL Corrected Calcium 9.3 8.5-10.1 MG/DL Total Bilirubin 1.1 H 0.1-1.0 MG/DL Aspartate Amino Transf (AST/SGOT) 27 5-34 U/L Alanine Aminotransferase (ALT/SGPT) 36 0-55 U/L Alkaline Phosphatase 94 40-136 U/L Total Protein 7.8 6.4-8.2 GM/DL Albumin 4.3 3.2-4.5 GM/DL Lipase 16 8-78 U/L My Orders Orders - MARIE KANG MD Ua Culture If Indicated (04/06/19 07:37) Urine Culture (04/06/19 07:15) Cbc With Automated Diff (04/06/19 07:58) Comprehensive Metabolic Panel (04/06/19 07:58) Lipase (04/06/19 07:58) Ct Abdomen/Pelvis Wo (04/06/19 07:58) Ns Iv 1000 Ml (Sodium Chloride 0.9%) (04/06/19 08:00) Fentanyl Injection (Sublimaze Injection (04/06/19 08:00) Ondansetron Injection (Zofran Injectio (04/06/19 08:00) Ciprofloxacin Tablet (Cipro Tablet) (04/06/19 09:09) Medications Given in ED Current Medications Medications Dose Ordered Sig/Sri Route Start Time Stop Time Status Last Admin Dose Admin Fentanyl Citrate 50 mcg ONCE ONCE IVP 04/06/19 08:00 04/06/19 08:01 DC 04/06/19 08:05 50 MCG Ondansetron HCl 4 mg ONCE ONCE IVP 04/06/19 08:00 04/06/19 08:01 DC 04/06/19 08:08 4 MG Vital Signs/I&O 04/06/19 07:02 Temp 97.1 Pulse 80 Resp 18 B/P (MAP) 127/98 (108) Pulse Ox 98 O2 Delivery Room Air Blood Pressure Mean: 108 Progress Progress Note : Time: 09:15 Progress Note Although the patient's urinalysis was serving consistent with urinary tract infection the patient relates that this is not the manner in which they have presented in the past. The patient is experiencing right upper quadrant pain that is at least suggestive of gallbladder disease. The pain and nausea medicine patient received IV made her feel better. Laboratory evaluation and CT the abdomen and pelvis was consistent with a urinary tract infection. Patient received 500 mg Cipro orally. I encouraged patient to follow up with [facility] and obtain an ultrasound to make certain that we have not missed gallbladder disease. Departure Impression Primary Impression: Urinary tract infection Qualified Codes: N30.00 - Acute cystitis without hematuria Additional Impression: Right upper quadrant pain Disposition: 01 HOME, SELF-CARE Condition: Improved Departure-Patient Inst. Decision time for Depature: 09:17 Referrals: [facility] (PCP/Family) Primary Care Physician Patient Instructions: Acute Abdomen (Belly Pain), Adult (DC), Acute Cystitis (DC) Add. Discharge Instructions: Cipro, Pyridium, and Vicodin as prescribed. Close follow-up with [facility] tomorrow for reevaluation and ultrasound for gallbladder. Return with any problems or questions. No work tonight. All discharge instructions reviewed with patient and/or family. Voiced understanding. Scripts Hydrocodone/Acetaminophen (Vicodin 5-300 mg Tablet) 1 Each Tablet 1-2 EACH PO Q6H PRN for PAIN-MODERATE MDD 10 for 7 Days, #20 TAB Prov: MARIE KANG MD 04/06/19 Phenazopyridine HCl (Pyridium) 200 Mg Tablet 1 TAB PO TID, #10 TAB Prov: MARIE KANG MD 04/06/19 Ciprofloxacin HCl (Ciprofloxacin HCl) 500 Mg Tablet 500 MG PO BID for 7 Days, #14 TAB Prov: MARIE KANG MD 04/06/19 MARIE KANG MD Apr 06, 2019 08:04
[2019-04-06 08:06] LABS: BASOPHILS % (AUTO) 0 % (0-10); EOSINOPHILS # (AUTO) 0.2 10^3/uL (0.0-0.3); EOSINOPHILS % (AUTO) 3 % (0-10); HEMATOCRIT 38 % (35-52); HEMOGLOBIN 12.4 G/DL (11.5-16.0); LYMPHOCYTES % (AUTO) 34 % (12-44); MEAN CORPUSCULAR HEMOGLOBIN 29 PG (25-34); MEAN CORPUSCULAR HGB CONC 32 G/DL (32-36); MEAN CORPUSCULAR VOLUME 88 FL (80-99); MEAN PLATELET VOLUME 10.9 FL (7.4-10.4); MONOCYTES # (AUTO) 0.5 X 10^3 (0.0-1.0); MONOCYTES % (AUTO) 6 % (0-12); NEUTROPHILS # (AUTO) 5.1 X 10^3 (1.8-7.8); NEUTROPHILS % (AUTO) 58 % (42-75); PLATELET COUNT 330 10^3/uL (130-400); RED CELL DISTRIBUTION WIDTH 13.4 % (10.0-14.5); WHITE BLOOD COUNT 8.9 10^3/uL (4.3-11.0)
[2019-04-06 08:17] LABS: BUN/CREATININE RATIO 11; CALCIUM 9.5 MG/DL (8.5-10.1); CARBON DIOXIDE 25 MMOL/L (21-32); CHLORIDE 103 MMOL/L (98-107); CREATININE SERUM 0.76 MG/DL (0.60-1.30); GFR ESTIMATED > 60; GLUCOSE 82 MG/DL (70-105); POTASSIUM 3.3 MMOL/L (3.6-5.0); SODIUM 138 MMOL/L (135-145)
[2019-04-06 08:18] LABS: ALANINE AMINOTRANSFERASE 36 U/L (0-55); ALBUMIN 4.3 GM/DL (3.2-4.5); ALKALINE PHOSPHATASE 94 U/L (40-136); BILIRUBIN,TOTAL 1.1 MG/DL (0.1-1.0); LIPASE 16 U/L (8-78); TOTAL PROTEIN 7.8 GM/DL (6.4-8.2)
--- NOTE | 2019-04-06 08:46 | Diagnostic Imaging Report ---
PROCEDURE: CT abdomen and pelvis without contrast. TECHNIQUE: Multiple contiguous axial images were obtained through the abdomen and pelvis without the use of intravenous contrast. Auto Exposure Controls were utilized during the CT exam to meet ALARA standards for radiation dose reduction. INDICATION: Abdominal pain Comparison is made to the study of 12/30/2014. Extensive surgical changes are seen along the stomach. There is no evidence of focal hepatic, gallbladder, pancreatic or splenic abnormality. Adrenal glands and kidneys are also unremarkable. There is no evidence of free fluid in the abdomen or pelvis. There are surgical clips in the expected location of the appendix. There is no evidence of organized fluid collection. There has been apparent tubal ligation. Bladder is nonopacified which limits evaluation, however, no bladder abnormalities detected. IMPRESSION: Surgical changes of the stomach, appendix and fallopian tubes without acute abnormality seen within the abdomen or pelvis. Dictated by: Dictated on workstation # [id number]
--- NOTE | 2019-04-06 08:57 | NUR ---
Pt sleeping. Will continue to monitor.
[2019-04-06] MEDS ORDERED: CIPROFLOXACIN 500 MG (CIPRO) TABLET PO STA (09:09)
[2019-04-06] MEDS ORDERED: CIPR500T4 PO (09:20)
[2019-04-06] MEDS ORDERED: PHEN-640 PO (09:20)
[2019-04-06] MEDS ORDERED: HYDR-3455 PO (09:21)
[2019-04-06 09:28] VITALS: BP 117/82
== END 2019-04-06 09:28 | disposition home or self-care (01) ==
LOC: EDUNIT# 06:52 → ER 06:55
DX: N39.0 Urinary tract infection, site not specified (principal); G43.909 Migraine, unspecified, not intractable, without status migrainosus; F41.9 Anxiety disorder, unspecified; F32.9 Major depressive disorder, single episode, unspecified; Z88.1 Allergy status to other antibiotic agents; Z88.0 Allergy status to penicillin; Z88.8 Allergy status to other drugs, medicaments and biological substances; Z91.040 Latex allergy status; Z90.49 Acquired absence of other specified parts of digestive tract; Z98.51 Tubal ligation status; Z98.84 Bariatric surgery status; Z82.49 Family history of ischemic heart disease and other diseases of the circulatory system
CPT/HCPCS: 36415; 74176; 80053; 81000; 83690; 84703; 85025; 87088; 96361; 96374; 96375

== ENCOUNTER → 2019-04-24 | Outpatient (CLI) | payer MEDICAID ==
[~2019-04-24] MED LIST changes: +CATHETER FLUSH 10 ML SYR IV PRN; +CIPR500T4 PO; +HYDR-3455 PO; +PHEN-640 PO
--- NOTE | 2019-04-24 11:03 | Diagnostic Imaging Report ---
Clinical indication: Patient with right upper quadrant pain. Comparison: CT scan of abdomen and pelvis without contrast dated 04/06/2019. Procedure: The patient was administered 5.16 millicuries of technetium 99m Choletec. After 60 minutes of the images, one can of Ensure was drink followed by another 60 minutes of imaging. A nuclear medicine hepatobiliary scan with ejection fraction was performed. Findings: There is prompt uptake and excretion of radiotracer by the liver. Activity is visible in the gallbladder by 25 minutes and the small bowel by 25 minutes. Ejection fraction of the gallbladder is calculated at 68% (normal >33%). The gallbladder visibly empties on the scans following the ingestion of Ensure. Impression: Normal hepatobiliary scan with normal gallbladder ejection fraction. Dictated by: Dictated on workstation # [id number]
== END ==
LOC: CARD 07:31
PROVIDERS: ATTEND Nurse Practitioner Community Health
DX: R10.11 Right upper quadrant pain (principal)
CPT/HCPCS: 78227

== ENCOUNTER 2019-07-20 11:24 | Emergency (ER) | payer MEDICAID ==
[~2019-07-20] VITALS: Ht 167.7 cm; Wt 78.9 kg
[~2019-07-20 11:24] MED LIST changes: -CATHETER FLUSH 10 ML SYR IV PRN
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
[2019-07-20 11:56] VITALS: BP 131/76
--- NOTE | 2019-07-20 12:05 | Diagnostic Imaging Report ---
Right hand 11:47. Indication: Fell, hand pain. 3 views were obtained. There is no fracture, dislocation or acute bony abnormality evident. The radiocarpal joint is well maintained, appears similar to the prior exam of 10/17/2011. The soft tissues are unremarkable. Impression: There is no evidence for an acute bony abnormality. Dictated by: Dictated on workstation # [id number]
== END 2019-07-20 11:56 | disposition home or self-care (01) ==
LOC: EDUNIT# 11:24 → ER 11:25
DX: S60.221A Contusion of right hand, initial encounter (principal); G43.909 Migraine, unspecified, not intractable, without status migrainosus; F41.9 Anxiety disorder, unspecified; F32.9 Major depressive disorder, single episode, unspecified; Z88.1 Allergy status to other antibiotic agents; Z88.0 Allergy status to penicillin; Z88.8 Allergy status to other drugs, medicaments and biological substances; Z91.040 Latex allergy status; Z90.49 Acquired absence of other specified parts of digestive tract; Z82.49 Family history of ischemic heart disease and other diseases of the circulatory system; W01.198A Fall on same level from slipping, tripping and stumbling with subsequent striking against other object, initial encounter
CPT/HCPCS: 73130

== ENCOUNTER 2019-11-05 15:23 | Emergency (ER) | payer MEDICAID ==
[~2019-11-05] VITALS: Ht 167.7 cm; Wt 68.0 kg
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
[2019-11-05 17:38] VITALS: BP 130/88
== END 2019-11-05 17:38 | disposition home or self-care (01) ==
LOC: EDUNIT# 15:23 → ER 15:25
DX: S06.0X0A Concussion without loss of consciousness, initial encounter (principal); S01.01XA Laceration without foreign body of scalp, initial encounter; S01.81XA Laceration without foreign body of other part of head, initial encounter; R40.2142 Coma scale, eyes open, spontaneous, at arrival to emergency department; R40.2252 Coma scale, best verbal response, oriented, at arrival to emergency department; R40.2362 Coma scale, best motor response, obeys commands, at arrival to emergency department; Z88.1 Allergy status to other antibiotic agents; Z88.2 Allergy status to sulfonamides; Z88.8 Allergy status to other drugs, medicaments and biological substances; Z91.040 Latex allergy status; Z82.49 Family history of ischemic heart disease and other diseases of the circulatory system; Y08.89XA Assault by other specified means, initial encounter
CPT/HCPCS: 70450; 70486; 72125

== ENCOUNTER 2019-11-29 17:28 | Emergency (ER) | payer MEDICAID ==
[~2019-11-29] VITALS: Ht 167.7 cm; Wt 77.2 kg
[2019-11-29 17:40] VITALS: BP 105/74
[2019-11-29] MEDS ORDERED: LORazepam INJ 2 MG/ML (ATIVAN) VIAL IVP PRN (17:45)
[2019-11-29 17:51] LABS: BASOPHILS % (AUTO) 0 % (0-10); EOSINOPHILS # (AUTO) 0.2 10^3/uL (0.0-0.3); EOSINOPHILS % (AUTO) 3 % (0-10); HEMATOCRIT 38 % (35-52); HEMOGLOBIN 12.6 G/DL (11.5-16.0); LYMPHOCYTES # (AUTO) 2.2 X 10^3 (1.0-4.0); LYMPHOCYTES % (AUTO) 28 % (12-44); MEAN CORPUSCULAR HEMOGLOBIN 30 PG (25-34); MEAN CORPUSCULAR HGB CONC 33 G/DL (32-36); MEAN CORPUSCULAR VOLUME 90 FL (80-99); MEAN PLATELET VOLUME 10.3 FL (7.4-10.4); MONOCYTES # (AUTO) 0.5 X 10^3 (0.0-1.0); MONOCYTES % (AUTO) 6 % (0-12); NEUTROPHILS % (AUTO) 63 % (42-75); PLATELET COUNT 323 10^3/uL (130-400); RED CELL DISTRIBUTION WIDTH 13.1 % (10.0-14.5); WHITE BLOOD COUNT 7.9 10^3/uL (4.3-11.0)
[2019-11-29 17:52] LABS: BILIRUBIN,URINE NEGATIVE (NEGATIVE); CLARITY,URINE CLEAR; COLOR,URINE YELLOW; GLUCOSE, URINE (UA) NEGATIVE (NEGATIVE); KETONES,URINE NEGATIVE (NEGATIVE); LEUKOCYTE ESTERASE ,URINE 1+ (NEGATIVE); NITRITE,URINE NEGATIVE (NEGATIVE); PROTEIN,URINE NEGATIVE (NEGATIVE)
[2019-11-29] MEDS ORDERED: HYDR-700 PO (17:52)
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
[2019-11-29 17:59] LABS: BACTERIA,URINE TRACE /HPF; WBC,URINE RARE /HPF
[2019-11-29 18:06] LABS: AMPHETAMINE SCREEN, URINE NEGATIVE (NEGATIVE); BARBITURATE SCREEN URINE NEGATIVE (NEGATIVE); BENZODIAZEPINES SCREEN URINE NEGATIVE (NEGATIVE); CANNABINOID SCREEN, URINE NEGATIVE (NEGATIVE); COCAINE SCREEN URINE NEGATIVE (NEGATIVE); METHADONE STAT NEGATIVE (NEGATIVE); METHAMPHETAMINE SCREEN URINE S NEGATIVE (NEGATIVE); OPIATE SCREEN URINE NEGATIVE (NEGATIVE); OXYCODONE STAT NEGATIVE (NEGATIVE); PROPOXYPHENE STAT NEGATIVE (NEGATIVE); TRICYCLIC ANTIDEPRESSANTS SCRE NEGATIVE (NEGATIVE)
[2019-11-29 18:25] LABS: ALANINE AMINOTRANSFERASE 9 U/L (0-55); ALKALINE PHOSPHATASE 58 U/L (40-136); BILIRUBIN,TOTAL 0.8 MG/DL (0.1-1.0); BUN/CREATININE RATIO 8; CALCIUM 8.8 MG/DL (8.5-10.1); CARBON DIOXIDE 23 MMOL/L (21-32); CHLORIDE 108 MMOL/L (98-107); CREATININE SERUM 0.79 MG/DL (0.60-1.30); GFR ESTIMATED > 60; GLUCOSE 66 MG/DL (70-105); POTASSIUM 3.5 MMOL/L (3.6-5.0); SODIUM 140 MMOL/L (135-145); TOTAL PROTEIN 7.2 GM/DL (6.4-8.2)
[2019-11-29] MEDS ORDERED: RX-LORAZEPAM (ATIVAN) 0.5 MG TAB PPK#4 PO STA (18:29)
--- NOTE | 2019-11-29 18:36 | Diagnostic Imaging Report ---
PROCEDURE: CT head without contrast. TECHNIQUE: Multiple contiguous axial images were obtained through the brain without the use of intravenous contrast. Auto Exposure Controls were utilized during the CT exam to meet ALARA standards for radiation dose reduction. INDICATION: Head trauma. Anxiety. Syncope. COMPARISON: 11/05/2019. FINDINGS: The ventricles and cortical sulci appear age-appropriate. There is no midline shift or mass effect. No acute intracranial hemorrhage is seen. There is no CT evidence of acute territorial ischemia. The calvarium appears intact. Visualized paranasal sinuses are clear. IMPRESSION: No acute intracranial hemorrhage or CT evidence of acute territorial ischemia. Dictated by: Dictated on workstation # [id number]
== END 2019-11-29 17:40 | disposition home or self-care (01) ==
LOC: EDUNIT# 17:28 → ER 17:30
DX: F41.9 Anxiety disorder, unspecified (principal); Z88.1 Allergy status to other antibiotic agents; Z88.0 Allergy status to penicillin; Z91.040 Latex allergy status; Z88.8 Allergy status to other drugs, medicaments and biological substances; Z82.49 Family history of ischemic heart disease and other diseases of the circulatory system; Y00.XXXA Assault by blunt object, initial encounter; Y92.481 Parking lot as the place of occurrence of the external cause
CPT/HCPCS: 36415; 70450; 80053; 80306; 81000; 84703; 85025; 85379; 93005

== ENCOUNTER 2020-07-13 23:53 | Emergency (ER) | payer SELFPAY ==
[~2020-07-13] VITALS: Ht 167.7 cm; Wt 65.7 kg
[~2020-07-13 23:53] MED LIST changes: +HYDR-700 PO
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
[2020-07-14] MEDS ORDERED: KETOROLAC 60 MG/2 ML VIAL IM ONE (01:45)
[2020-07-14] MEDS ORDERED: TRM50T PO (02:05)
[2020-07-14 02:18] VITALS: BP 126/78
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
== END 2020-07-14 02:18 | disposition home or self-care (01) ==
LOC: EDUNIT# 23:53 → ER 23:56
DX: S62.346A Nondisplaced fracture of base of fifth metacarpal bone, right hand, initial encounter for closed fracture (principal); F41.9 Anxiety disorder, unspecified; Z82.49 Family history of ischemic heart disease and other diseases of the circulatory system; Z88.0 Allergy status to penicillin; Z88.1 Allergy status to other antibiotic agents; Z91.040 Latex allergy status; Z88.8 Allergy status to other drugs, medicaments and biological substances; W22.01XA Walked into wall, initial encounter
CPT/HCPCS: 29125; 73130

== ENCOUNTER 2020-09-29 10:12 | Emergency (ER) | payer MEDICAID ==
[~2020-09-29] VITALS: Ht 167 cm; Wt 54.0 kg
[~2020-09-29 10:12] MED LIST changes: -CIPR500T4 PO; +CIPR500T5 PO
[2020-09-29] MEDS ORDERED: fentaNYL INJECTION 100 MCG/2 ML AMP IVP ONE (11:00)
[2020-09-29 11:14] LABS: BILIRUBIN,URINE NEGATIVE (NEGATIVE); CLARITY,URINE CLOUDY; COLOR,URINE YELLOW; GLUCOSE, URINE (UA) NEGATIVE (NEGATIVE); KETONES,URINE NEGATIVE (NEGATIVE); LEUKOCYTE ESTERASE ,URINE 3+ (NEGATIVE); NITRITE,URINE NEGATIVE (NEGATIVE); PH,URINE 8.5 (5-9); PROTEIN,URINE TRACE (NEGATIVE)
[2020-09-29 11:25] LABS: BASOPHILS % (AUTO) 0 % (0-10); EOSINOPHILS # (AUTO) 0.1 10^3/uL (0.0-0.3); EOSINOPHILS % (AUTO) 1 % (0-10); HEMATOCRIT 37 % (35-52); HEMOGLOBIN 12.6 g/dL (11.5-16.0); LYMPHOCYTES # (AUTO) 1.5 10^3/uL (1.0-4.0); LYMPHOCYTES % (AUTO) 13 % (12-44); MEAN CORPUSCULAR HEMOGLOBIN 30 pg (25-34); MEAN CORPUSCULAR HGB CONC 35 g/dL (32-36); MEAN CORPUSCULAR VOLUME 86 fL (80-99); MONOCYTES # (AUTO) 0.6 10^3/uL (0.0-1.0); MONOCYTES % (AUTO) 5 % (0-12); NEUTROPHILS # (AUTO) 8.8 10^3/uL (1.8-7.8); NEUTROPHILS % (AUTO) 80 % (42-75); PLATELET COUNT 374 10^3/uL (130-400)
[2020-09-29 11:40] LABS: ALBUMIN 3.7 GM/DL (3.2-4.5); CHLORIDE 103 MMOL/L (98-107); POTASSIUM 3.6 MMOL/L (3.6-5.0); SODIUM 136 MMOL/L (135-145)
[2020-09-29 11:41] LABS: CALCIUM 8.6 MG/DL (8.5-10.1)
[2020-09-29 11:42] LABS: BACTERIA,URINE FEW /HPF; RBC,URINE RARE /HPF; WBC,URINE TNTC /HPF
[2020-09-29 11:43] LABS: GLUCOSE 97 MG/DL (70-105)
[2020-09-29 11:44] LABS: BILIRUBIN,TOTAL 0.8 MG/DL (0.1-1.0); CARBON DIOXIDE 26 MMOL/L (21-32)
[2020-09-29 11:46] LABS: ALKALINE PHOSPHATASE 61 U/L (40-136); CREATININE SERUM 0.82 MG/DL (0.60-1.30); GFR ESTIMATED > 60
[2020-09-29 11:47] LABS: BUN/CREATININE RATIO 10
[2020-09-29 11:49] LABS: ALANINE AMINOTRANSFERASE 15 U/L (0-55)
--- NOTE | 2020-09-29 12:03 | Diagnostic Imaging Report ---
PROCEDURE: US PELVIC (NON OB) TECHNIQUE: Multiple real-time grayscale images were obtained over the pelvis in various projections transabdominally. INDICATION: Right lower quadrant pain. The previous pelvic ultrasound exam performed on 04/15/2015 noted a small intrauterine fluid collection. It is not certain whether this was related to an early gestational sac or blighted ovum. On this exam, the uterus is nongravid and not enlarged measuring 7.8 x 4.1 x 5.2 cm. The endometrium is not thickened measuring 4 mm. There is no focal mass involving the uterus to suggest a fibroid. Both ovaries are identified and were generally unremarkable. There is no solid pelvic mass or free fluid collection identified. The right inguinal region was also evaluated. There is no sign of a segment of bowel extending into the inguinal canal on the right. IMPRESSION: 1. There is no evidence for an acute pelvic abnormality. 2. There is no sign of herniation of bowel into the inguinal canal on the right either. Dictated by: Dictated on workstation # [id number]
[2020-09-29] MEDS ORDERED: KETOROLAC 30 MG/ML VIAL IVP ONE (12:45)
[2020-09-29] MEDS ORDERED: ONDANSETRON 4 MG/2 ML (SDV) Z0FRAN IVP ONE (13:15)
[2020-09-29] MEDS ORDERED: AZITHROMYCIN 250 MG TAB (ZITHROMAX) PO ONE (13:15)
[2020-09-29] MEDS ORDERED: NS IV 1000 ML 1,000 ML IV SCH (13:15)
--- NOTE | 2020-09-29 13:32 | ED Abdominal Pain ---
General Chief Complaint: Abdominal/GI Problems Stated Complaint: RLQ PAIN Nursing Triage Note: ARRIVED VIA AMB WITH COMPLAINTS OF RIGHT LOWER QUAD PAIN X3 DAYS. THINKS SHE HAS A HERNIA THAT WENT BACK IN YESTERDAY. STATES HER PAIN IS WORSE SINCE YESTERDAY. Sepsis Screen: No Definite Risk Source of Information: Patient Exam Limitations: No Limitations History of Present Illness Date Seen by Provider: Sep 29, 2020 Time Seen by Provider: 10:15 Initial Comments This 35-year-old young lady presents to the emergency room with complaints of right lower quadrant pain. She complains of a painful bulging in the right inguinal area. This was more prominent a couple days ago but has since decreased in size. She is still quite tender though. Symptoms have been present for at least 3 days. She has had some associated nausea and pain with urination. It is painful to move, defecate, and change positions. She also complains of increased vaginal discharge. She denies change in color or odor. She had some light vaginal bleeding yesterday as well. She finished her LMP about a week ago. Patient is concerned that she may have an inguinal hernia. Allergies and Home Medications Allergies Coded Allergies: Cephalosporins (Verified Allergy, Unknown, 11/26/15) Penicillins (Verified Allergy, Unknown, 09/23/07) adhesive (Verified Allergy, Unknown, 09/23/07) benzocaine (Verified Allergy, Unknown, 09/23/07) latex (Verified Allergy, Unknown, 09/23/07) nitrofurantoin (Verified Allergy, Unknown, 10/16/13) Home Medications Butalb/Acetaminophen/Caffeine 1 Each Capsule, 1 EACH PO Q6H PRN for HEADACHE Prescribed by: BOBBY SCHMITZ on 02/19/17 1906 Ciprofloxacin HCl 500 Mg Tablet, 500 MG PO BID Prescribed by: MARIE KANG MD on 04/06/19 0920 Ciprofloxacin HCl 500 Mg Tablet, 500 MG PO BID Prescribed by: BARAK BASSETT on 09/29/20 1408 Hydrocodone/Acetaminophen 1 Each Tablet, 1-2 EACH PO Q6H PRN for PAIN-MODERATE Prescribed by: MARIE KANG MD on 04/06/19 0921 Hydroxyzine HCl 25 Mg Tablet, 25 MG PO Q6H PRN for ANXIETY Prescribed by: ENRIQUE DINH on 11/29/19 1752 Metronidazole 500 Mg Tablet, 500 MG PO BID Prescribed by: BARAK BASSETT on 09/29/20 1408 Phenazopyridine HCl 200 Mg Tablet, 1 TAB PO TID Prescribed by: MARIE KANG MD on 04/06/19 0920 Tramadol HCl 50 Mg Tablet, 50 MG PO Q6H PRN for PAIN Prescribed by: RU HERNANDEZ on 07/14/20 0205 Patient Home Medication List Home Medication List Reviewed: Yes Review of Systems Review of Systems Constitutional: no symptoms reported EENTM: No Symptoms Reported Respiratory: No Symptoms Reported Cardiovascular: No Symptoms Reported Gastrointestinal: See HPI Genitourinary: See HPI Musculoskeletal: no symptoms reported Skin: no symptoms reported Psychiatric/Neurological: No Symptoms Reported Endocrine: No Symptoms Reported Hematologic/Lymphatic: No Symptoms Reported Past Dynucwo-Bwtakr-Ujhcin Hx Past Med/Social Hx: Reviewed Nursing Past Med/Soc Hx Patient Social History Alcohol Use: Occasionally Uses Drug of Choice: POT, METH Smoking Status: Never a Smoker 2nd Hand Smoke Exposure: No Recent Infectious Disease Expo: No Recent Hopitalizations: No Immunizations Up To Date Tetanus Booster (TDap): Less than 5yrs Date of Pneumonia Vaccine: Apr 29, 2012 Date of Influenza Vaccine: May 20, 2015 Seasonal Allergies Seasonal Allergies: No Past Medical History Surgeries: Yes (EXPLORATORY LAP FOR CYST, DISLOCATED left SHOULDER, cryotherapy on cervix, ) Abdominal, Appendectomy, Section, Orthopedic, Tubal Ligation Respiratory: No Cardiac: No Neurological: Yes Headaches /Migraines Reproductive Disorders: Yes Sexually Transmitted Disease: Yes (hpv in 2005) Genitourinary: No 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) Musculoskeletal: Yes (HX OF DISLOCATED SHOULDER) Endocrine: No HEENT: No Cancer: No Psychosocial: Yes ( depression) Anxiety, Depression Integumentary: No Blood Disorders: No Family Medical History Alcoholism 03 FATHER 09 BROTHER Drug abuse 03 FATHER 09 BROTHER Family history: Hypertension Heart disease 03 MOTHER Hypertension 09 BROTHER Myocardial infarction 03 MOTHER Psychosocial problem 03 FATHER 03 MOTHER 09 BROTHER No Family History of: Abdominal aortic aneurysm Cancer Dementia Family history: Alzheimer's disease Family history: Arthritis Family history: Asthma Family history: Breast disease Family history: Cardiovascular disease Family history: Diabetes mellitus Family history: Gastrointestinal disease Family history: Osteoporosis Family history: Thyroid disorder Hereditary disease History of - respiratory disease Kidney disease Prostate cancer Psychotic disorder Seizure disorder Stroke No Pertinent Family Hx Physical Exam Vital Signs Vital Signs - First Documented 09/29/20 10:20 Temp 36.7 Pulse 107 Resp 16 B/P (MAP) 111/96 (101) Pulse Ox 99 O2 Delivery Room Air Capillary Refill : Less Than 3 Seconds Height/Weight/BMI Height: 5'6.00" Weight: 192lbs. 0.0oz. 87.953158vl; 19.00 BMI Method:Stated General Appearance: WD/WN, moderate distress HEENT: PERRL/EOMI, normal ENT inspection Neck: normal inspection Respiratory: lungs clear, normal breath sounds, no respiratory distress Cardiovascular: regular rate, rhythm, no edema, no murmur Gastrointestinal: normal bowel sounds, soft, tenderness (Right lower quadrant with positive Rovsing) Extremities: normal inspection, no pedal edema Pelvic: normal external exam, discharge (Copious greenish discharge in the vaginal vault and coming from the cervical os), other (Vaginal pain with insertion of the speculum) Neurologic/Psychiatric: [place] II-XII nml as tested, no motor/sensory deficits, alert, normal mood/affect, oriented x 3 Skin: normal color, warm/dry Lymphatic: inguinal node tender (R); No inguinal node tender (L) Progress/Results/Core Measures Results/Orders Lab Results Laboratory Tests Test 09/29/20 10:07 09/29/20 11:15 09/29/20 12:54 Range/Units Urine Color YELLOW Urine Clarity CLOUDY Urine pH 8.5 5-9 Urine Specific [place] 1.020 1.016-1.022 Urine Protein TRACE H NEGATIVE Urine Glucose (UA) NEGATIVE NEGATIVE Urine Ketones NEGATIVE NEGATIVE Urine Nitrite NEGATIVE NEGATIVE Urine Bilirubin NEGATIVE NEGATIVE Urine Urobilinogen 4.0 < = 1.0 MG/DL Urine Leukocyte Esterase 3+ H NEGATIVE Urine RBC (Auto) NEGATIVE NEGATIVE Urine RBC RARE /HPF Urine WBC TNTC H /HPF Urine Squamous Epithelial Cells 5-10 /HPF Urine Crystals NONE /LPF Urine Bacteria FEW H /HPF Urine Casts NONE /LPF Urine Mucus SMALL H /LPF Urine Culture Indicated YES White Blood Count 11.0 4.3-11.0 10^3/uL Red Blood Count 4.23 3.80-5.11 10^6/uL Hemoglobin 12.6 11.5-16.0 g/dL Hematocrit 37 35-52 % Mean Corpuscular Volume 86 80-99 fL Mean Corpuscular Hemoglobin 30 25-34 pg Mean Corpuscular Hemoglobin Concent 35 32-36 g/dL Red Cell Distribution Width 11.8 10.0-14.5 % Platelet Count 374 130-400 10^3/uL Mean Platelet Volume 9.0 9.0-12.2 fL Immature Granulocyte % (Auto) 1 % Neutrophils (%) (Auto) 80 H 42-75 % Lymphocytes (%) (Auto) 13 12-44 % Monocytes (%) (Auto) 5 0-12 % Eosinophils (%) (Auto) 1 0-10 % Basophils (%) (Auto) 0 0-10 % Neutrophils # (Auto) 8.8 H 1.8-7.8 10^3/uL Lymphocytes # (Auto) 1.5 1.0-4.0 10^3/uL Monocytes # (Auto) 0.6 0.0-1.0 10^3/uL Eosinophils # (Auto) 0.1 0.0-0.3 10^3/uL Basophils # (Auto) 0.0 0.0-0.1 10^3/uL Immature Granulocyte # (Auto) 0.1 0.0-0.1 10^3/uL Sodium Level 136 135-145 MMOL/L Potassium Level 3.6 3.6-5.0 MMOL/L Chloride Level 103 98-107 MMOL/L Carbon Dioxide Level 26 21-32 MMOL/L Anion Gap 7 5-14 MMOL/L Blood Urea Nitrogen 8 7-18 MG/DL Creatinine 0.82 0.60-1.30 MG/DL Estimat Glomerular Filtration Rate > 60 BUN/Creatinine Ratio 10 Glucose Level 97 70-105 MG/DL Calcium Level 8.6 8.5-10.1 MG/DL Corrected Calcium 8.8 8.5-10.1 MG/DL Total Bilirubin 0.8 0.1-1.0 MG/DL Aspartate Amino Transf (AST/SGOT) 15 5-34 U/L Alanine Aminotransferase (ALT/SGPT) 15 0-55 U/L Alkaline Phosphatase 61 40-136 U/L C-Reactive Protein High Sensitivity 1.44 H 0.00-0.50 MG/DL Total Protein 7.0 6.4-8.2 GM/DL Albumin 3.7 3.2-4.5 GM/DL Serum Test, Qualitative NEGATIVE NEGATIVE Micro Results Microbiology 3/3/21 Genital Culture, Resulted Pending 09/29/20 Wet Prep - Final, Resulted My Orders Orders - BARAK CRYSTAL MD Ua Culture If Indicated (09/29/20 10:15) Cbc With Automated Diff (09/29/20 10:52) Comprehensive Metabolic Panel (09/29/20 10:52) Hs C Reactive Protein (09/29/20 10:52) Ed Iv/Invasive Line Start (09/29/20 10:52) Hcg,Qualitative Serum (09/29/20 10:52) Fentanyl Injection (Sublimaze Injection (09/29/20 11:00) Urine Culture (09/29/20 10:07) Us Pelvic (Non Ob)58618 (09/29/20 10:52) Ketorolac Injection (Toradol Injection) (09/29/20 12:45) Wet Prep (09/29/20 12:42) Neisseria Gonorrhea Swab (09/29/20 12:42) Genital Culture (09/29/20 12:42) Chlamydia Trachomatis Swab (09/29/20 12:42) Azithromycin Tablet (Zithromax Tablet) (09/29/20 13:15) Ondansetron Injection (Zofran Injectio (09/29/20 13:15) Ns Iv 1000 Ml (Sodium Chloride 0.9%) (09/29/20 13:15) Ceftriaxone For Iv Use (Rocephin For I (09/29/20 13:45) Medications Given in ED Current Medications Medications Dose Ordered Sig/Sri Route Start Time Stop Time Status Last Admin Dose Admin Azithromycin 1,000 mg ONCE ONCE PO 09/29/20 13:15 09/29/20 13:16 DC 09/29/20 13:27 1,000 MG Ceftriaxone Sodium 1000 mg/ Sterile Water 10 ml @ 200 mls/hr ONCE ONCE IV 09/29/20 13:45 09/29/20 13:47 DC 09/29/20 13:48 200 MLS/HR Fentanyl Citrate 75 mcg ONCE ONCE IVP 09/29/20 11:00 09/29/20 11:01 DC 09/29/20 11:14 75 MCG Ketorolac Tromethamine 15 mg ONCE ONCE IVP 09/29/20 12:45 09/29/20 12:46 DC 09/29/20 12:49 15 MG Ondansetron HCl 4 mg ONCE ONCE IVP 09/29/20 13:15 09/29/20 13:16 DC 09/29/20 13:27 4 MG Vital Signs/I&O 09/29/20 10:20 Temp 36.7 Pulse 107 Resp 16 B/P (MAP) 111/96 (101) Pulse Ox 99 O2 Delivery Room Air Blood Pressure Mean: 101 Progress Progress Note : Progress Note Patient's pain was treated with fentanyl and Toradol. Ultrasound revealed no abnormalities to explain her pain. Urine was suggestive of infection. Helbig exam was performed revealing copious amounts of purulent vaginal and cervical drainage. She was empirically treated with Rocephin and azithromycin. Zofran was given for nausea. She received a liter of IV fluid. She reports a GI sensitivity to cephalosporins. Cipro and Flagyl were prescribed for further treatment of bacterial vaginosis and possible urinary tract infection. See discharge instructions for further discussion. Departure Impression Primary Impression: Pelvic inflammatory disease Additional Impressions: Bacterial vaginosis Right lower quadrant pain Disposition: HOME, SELF-CARE Condition: Improved Departure-Patient Inst. Decision time for Depature: 14:01 Referrals: [facility] [place] ([place]/Family) Primary Care Physician Patient Instructions: Pelvic Inflammatory Disease Add. Discharge Instructions: Complete your antibiotics as prescribed. Follow-up with your primary care provider next week. Review culture results with your provider at that time. Abstain from any sexual activity or anything vaginally until cleared by your doctor. You may take ibuprofen up to 600 mg every 6 hours and/or Tylenol (acetaminophen) up to 1000 mg every 6 hours as needed for pain. Drink plenty of clear liquids. Please notify prior partners that a sexually transmitted infection is suspected. They should be tested and treated appropriately. Call with questions or concerns. Return to the emergency room if you have worsening symptoms, especially if you develop fevers over 100 degrees. All discharge instructions reviewed with patient and/or family. Voiced understanding. Scripts Metronidazole (Flagyl) 500 Mg Tablet 500 MG PO BID, #14 TAB Prov: BARAK CRYSTAL MD 09/29/20 Ciprofloxacin HCl (Ciprofloxacin HCl) 500 Mg Tablet 500 MG PO BID, #14 TAB Prov: BARAK CRYSTAL MD 09/29/20 Copy Copies To 1: JR NESS JOSHUA T MD Sep 29, 2020 13:32
[2020-09-29] MEDS ORDERED: cefTRIAXone FOR IV USE 1,000 MG in WATER (STERILE) FOR INJECTION 10 ML IV ONE (13:45)
[2020-09-29] MEDS ORDERED: METR500T PO ×2 (14:03→14:08)
[2020-09-29] MEDS ORDERED: CIPR500T5 PO ×2 (14:03→14:08)
[2020-09-29 14:19] VITALS: BP 144/73
== END 2020-09-29 14:19 | disposition home or self-care (01) ==
LOC: EDUNIT# 10:12 → ER 10:14
DX: N73.9 Female pelvic inflammatory disease, unspecified (principal); N76.0 Acute vaginitis; F41.9 Anxiety disorder, unspecified; Z82.49 Family history of ischemic heart disease and other diseases of the circulatory system; Z88.0 Allergy status to penicillin; Z88.1 Allergy status to other antibiotic agents; Z91.040 Latex allergy status; Z88.8 Allergy status to other drugs, medicaments and biological substances
CPT/HCPCS: 36415; 76856; 80053; 81000; 84703; 85025; 86141; 87070; 87088; 87205; 87210; 87491; 87591

== ENCOUNTER 2021-01-08 19:46 | Emergency (ER) | payer MEDICAID ==
[~2021-01-08] VITALS: Ht 167.9 cm; Wt 54.0 kg
[2021-01-08] MEDS ORDERED: LACTATED RINGERS 1,000 ML IV ONE (20:00)
--- NOTE | 2021-01-08 20:04 | ED General ---
General Chief Complaint: Detox Stated Complaint: NARCOTIC DETOX / SWELLING/SHAKING/NAUSEA Nursing Triage Note: REPORTS STAYING AT THE [facility]. STATES IS 'DETOXING' FROM METH, FENTANYL, AND COCAINE. LAST USED 4 DAYS AGO Nursing Sepsis Screen: No Definite Risk Source of Information: Patient (SPEECH RAPID AND SOMEWHAT MUMBLED, DIFFICULT TO UNDERSTAND AT TIMES) History of Present Illness Date Seen by Provider: Jan 08, 2021 Time Seen by Provider: 19:53 Initial Comments PT ARRIVES VIA POV FROM [facility] STATES SHE IS HOMELESS, AND HAS BEEN AT THE [facility] SINCE YESTERDAY STATES SHE IS "DETOXING" / WITHDRAWING FROM IV METH/FENTANYL/COCAINE STATES SHE USES THE ABOVE COMBINATION THREE TIMES A DAY EVERY DAY PT STATES SHE LAST USED ANY DRUGS 4 DAYS AGO STATES THE FIRST 2 DAYS SHE WAS "COMPLETELY BLACKED OUT" STATES SHE IS "DETOXING" SINCE YESTERDAY--C/O NAUSEA, NO VOMITING. NO DIARRHEA--HAS ONGOING CONSTIPATION. NO ABDOMINAL PAIN NO URINARY SYMPTOMS NO FEVER/SWEATS/CHILLS NO CHEST PAIN OR SHORTNESS OF BREATH NO RECENT ILLNESS PT HAS NOT HAD COVID-19 VACCINE PCP:[facility] BUT HAS NOT BEEN THERE IN A LONG TIME Allergies and Home Medications Allergies Coded Allergies: Cephalosporins (Verified Allergy, Unknown, 11/26/15) Penicillins (Verified Allergy, Unknown, 09/23/07) adhesive (Verified Allergy, Unknown, 09/23/07) benzocaine (Verified Allergy, Unknown, 09/23/07) latex (Verified Allergy, Unknown, 09/23/07) nitrofurantoin (Verified Allergy, Unknown, 10/16/13) Home Medications Butalb/Acetaminophen/Caffeine 1 Each Capsule, 1 EACH PO Q6H PRN for HEADACHE Prescribed by: BOBBY SCHMITZ on 02/19/17 1906 Ciprofloxacin HCl 500 Mg Tablet, 500 MG PO BID Prescribed by: MARIE KANG MD on 04/06/19 0920 Ciprofloxacin HCl 500 Mg Tablet, 500 MG PO BID Prescribed by: BARAK BASSETT on 09/29/20 1408 Hydrocodone/Acetaminophen 1 Each Tablet, 1-2 EACH PO Q6H PRN for PAIN-MODERATE Prescribed by: MARIE KANG MD on 04/06/19 0921 Hydroxyzine HCl 25 Mg Tablet, 25 MG PO Q6H PRN for ANXIETY Prescribed by: ENRIQUE DINH on 11/29/19 1752 Metronidazole 500 Mg Tablet, 500 MG PO BID Prescribed by: BARAK BASSETT on 09/29/20 1408 Phenazopyridine HCl 200 Mg Tablet, 1 TAB PO TID Prescribed by: MARIE KANG MD on 04/06/19 0920 Tramadol HCl 50 Mg Tablet, 50 MG PO Q6H PRN for PAIN Prescribed by: RU HERNANDEZ on 07/14/20 0205 Patient Home Medication List Home Medication List Reviewed: Yes Review of Systems Review of Systems Constitutional: no symptoms reported EENTM: no symptoms reported Respiratory: no symptoms reported Cardiovascular: no symptoms reported Gastrointestinal: see HPI; No abdominal pain; constipation; No diarrhea; nausea; No vomiting Genitourinary: no symptoms reported : No LMP: Dec 28, 2020 (S/P BTL) Musculoskeletal: no symptoms reported Skin: no symptoms reported Psychiatric/Neurological: See HPI, Anxiety Hematologic/Lymphatic: No Symptoms Reported Immunological/Allergic: no symptoms reported Past Sbcltzp-Zhczvv-Bwzkbv Hx Past Med/Social Hx: Reviewed and Corrections made Patient Social History Alcohol Use: Denies Use Drug of Choice: + IV FENTANYL, + METH ++ COCAINE Smoking Status: Never a Smoker 2nd Hand Smoke Exposure: No Recent Infectious Disease Expo: No Recent Hopitalizations: No Substance type: Other (+ IV FENTANYL PLUS METH PLUS COCAINE) Immunizations Up To Date Tetanus Booster (TDap): Less than 5yrs Date of Pneumonia Vaccine: Apr 29, 2012 Date of Influenza Vaccine: May 20, 2015 Seasonal Allergies Seasonal Allergies: No Past Medical History Surgeries: Yes (EXPLORATORY LAP FOR CYST, DISLOCATED left SHOULDER, cryotherapy on cervix, ) Abdominal, Appendectomy, Section, Orthopedic, Tubal Ligation Respiratory: No Cardiac: No Neurological: Yes Headaches /Migraines Reproductive Disorders: Yes (CERVICAL DYSPLASIA) Sexually Transmitted Disease: Yes (HPV 2005) Genitourinary: No 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) Musculoskeletal: Yes (HX OF DISLOCATED SHOULDER) Endocrine: No HEENT: No Cancer: No Psychosocial: Yes ( depression) Anxiety, Depression Integumentary: No Blood Disorders: No Family Medical History Alcoholism 03 FATHER 09 BROTHER Drug abuse 03 FATHER 09 BROTHER Family history: Hypertension Heart disease 03 MOTHER Hypertension 09 BROTHER Myocardial infarction 03 MOTHER Psychosocial problem 03 FATHER 03 MOTHER 09 BROTHER No Family History of: Abdominal aortic aneurysm Cancer Dementia Family history: Alzheimer's disease Family history: Arthritis Family history: Asthma Family history: Breast disease Family history: Cardiovascular disease Family history: Diabetes mellitus Family history: Gastrointestinal disease Family history: Osteoporosis Family history: Thyroid disorder Hereditary disease History of - respiratory disease Kidney disease Prostate cancer Psychotic disorder Seizure disorder Stroke No Pertinent Family Hx PAST SURGICAL HISTORY: -PT HAD PARTIAL GASTRECTOMY BARIATRIC SURGERY, THEN HAD EXPLORATORY LAP FOR "NICKED SPLEEN" DURING PROCEDURE--ALL PER PATEINT--NO PHYSICIAN VERIFICATION OF THIS -LEFT SHOULDER SURGERY FOR RECURRENT DISLOCATIONS - X 2 -BILATERAL TUBAL LIGATION -CRYOTHERAPY TREATMENT AND POSSIBLE LEEP OF CERVIX FOR DYSPLASIA -08/2007--EXPLORATORY LAPAROSCOPY FOR OVARIAN CYST Physical Exam Vital Signs Vital Signs - First Documented 01/08/21 01/08/21 19:51 21:06 Temp 36.8 Pulse 86 Resp 18 B/P (MAP) 119/83 (95) Pulse Ox 99 O2 Delivery Room Air Capillary Refill : Less Than 3 Seconds Height, Weight, BMI Height: 5'6.00" Weight: 192lbs. 0.0oz. [id number]; 19.00 BMI Method:Stated General Appearance: No Apparent Distress, WD/WN, Other (SPEECH RAPID AND SOMEWHAT MUMBLED AND DIFFICULT TO UNDERSTAND AT TIMES. MILDLY ANXIOUS) HEENT: Other (POOR DENTION) Neck: Normal Inspection Respiratory: Normal Breath Sounds, No Accessory Muscle Use, No Respiratory Distress Cardiovascular: Regular Rate, Rhythm, No Murmur Gastrointestinal: Non Tender, Soft Back: No CVA Tenderness Extremity: Normal Capillary Refill, Normal Range of Motion, Non Tender, No Pedal Edema, Other (MULTIPLE TRACK CASSIDY AND SCARS OF VARIOUS AGES IN LEFT AC) Neurologic/Psychiatric: Alert, Oriented x3, No Motor/Sensory Deficits, oncology specialist II- XII Norm as Tested Skin: Normal Color, Warm/Dry, Other ( ABOVE) Progress/Results/Core Measures Suspected Sepsis Recent Fever Within 48 Hours: No Infection Criteria Present: None New/Unexplained Altered Menta: No Sepsis Screen: No Definite Risk SIRS Temperature: Pulse: 86 Respiratory Rate: 18 Laboratory Tests 01/08/21 20:15: White Blood Count 8.0 Blood Pressure 119 /83 Mean: 95 Laboratory Tests 01/08/21 20:15: Creatinine 0.80, Platelet Count 314, Total Bilirubin 0.6 Results/Orders Lab Results Laboratory Tests Test 01/08/21 20:07 01/08/21 20:15 01/08/21 20:21 Range/Units Urine Color YELLOW Urine Clarity SL CLOUDY Urine pH 6.0 5-9 Urine Specific [place] 1.025 H 1.016-1.022 Urine Protein NEGATIVE NEGATIVE Urine Glucose (UA) NEGATIVE NEGATIVE Urine Ketones TRACE H NEGATIVE Urine Nitrite NEGATIVE NEGATIVE Urine Bilirubin NEGATIVE NEGATIVE Urine Urobilinogen 1.0 < = 1.0 MG/DL Urine Leukocyte Esterase NEGATIVE NEGATIVE Urine RBC (Auto) NEGATIVE NEGATIVE Urine RBC NONE /HPF Urine WBC 0-2 /HPF Urine Squamous Epithelial Cells 10-25 H /HPF Urine Crystals NONE /LPF Urine Bacteria TRACE /HPF Urine Casts NONE /LPF Urine Mucus SMALL H /LPF Urine Culture Indicated NO Urine Opiates Screen NEGATIVE NEGATIVE Urine Oxycodone Screen NEGATIVE NEGATIVE Urine Methadone Screen NEGATIVE NEGATIVE Urine Propoxyphene Screen NEGATIVE NEGATIVE Urine Barbiturates Screen NEGATIVE NEGATIVE Ur Tricyclic Antidepressants Screen NEGATIVE NEGATIVE Urine Phencyclidine Screen NEGATIVE NEGATIVE Urine Amphetamines Screen POSITIVE H NEGATIVE Urine Methamphetamines Screen POSITIVE H NEGATIVE Urine Benzodiazepines Screen NEGATIVE NEGATIVE Urine Cocaine Screen NEGATIVE NEGATIVE Urine Cannabinoids Screen NEGATIVE NEGATIVE White Blood Count 8.0 4.3-11.0 10^3/uL Red Blood Count 4.02 3.80-5.11 10^6/uL Hemoglobin 12.0 11.5-16.0 g/dL Hematocrit 36 35-52 % Mean Corpuscular Volume 90 80-99 fL Mean Corpuscular Hemoglobin 30 25-34 pg Mean Corpuscular Hemoglobin Concent 33 32-36 g/dL Red Cell Distribution Width 12.3 10.0-14.5 % Platelet Count 314 130-400 10^3/uL Mean Platelet Volume 9.5 9.0-12.2 fL Immature Granulocyte % (Auto) 0 % Neutrophils (%) (Auto) 63 42-75 % Lymphocytes (%) (Auto) 27 12-44 % Monocytes (%) (Auto) 6 0-12 % Eosinophils (%) (Auto) 3 0-10 % Basophils (%) (Auto) 1 0-10 % Neutrophils # (Auto) 5.1 1.8-7.8 10^3/uL Lymphocytes # (Auto) 2.2 1.0-4.0 10^3/uL Monocytes # (Auto) 0.5 0.0-1.0 10^3/uL Eosinophils # (Auto) 0.2 0.0-0.3 10^3/uL Basophils # (Auto) 0.0 0.0-0.1 10^3/uL Immature Granulocyte # (Auto) 0.0 0.0-0.1 10^3/uL Sodium Level 139 135-145 MMOL/L Potassium Level 3.9 3.6-5.0 MMOL/L Chloride Level 105 98-107 MMOL/L Carbon Dioxide Level 24 21-32 MMOL/L Anion Gap 10 5-14 MMOL/L Blood Urea Nitrogen 9 7-18 MG/DL Creatinine 0.80 0.60-1.30 MG/DL Estimat Glomerular Filtration Rate > 60 BUN/Creatinine Ratio 11 Glucose Level 130 H 70-105 MG/DL Calcium Level 8.8 8.5-10.1 MG/DL Corrected Calcium 9.1 8.5-10.1 MG/DL Magnesium Level 2.1 1.6-2.4 MG/DL Total Bilirubin 0.6 0.1-1.0 MG/DL Aspartate Amino Transf (AST/SGOT) 14 5-34 U/L Alanine Aminotransferase (ALT/SGPT) 10 0-55 U/L Alkaline Phosphatase 63 40-136 U/L Total Protein 6.8 6.4-8.2 GM/DL Albumin 3.6 3.2-4.5 GM/DL Serum Test, Qualitative NEGATIVE NEGATIVE Acetaminophen Level < 10 L 10-30 UG/ML Serum Alcohol < 10 <10 MG/DL SARS-CoV-2 RNA (RT-PCR) Not Detected Not Detecte My Orders Orders - SHERYL HUITRON DO Ed Iv/Invasive Line Start (01/08/21 19:59) Monitor-Rhythm Ecg Trace Only (01/08/21 19:59) Acetaminophen (01/08/21 19:59) Alcohol (01/08/21 19:59) Cbc With Automated Diff (01/08/21 19:59) Comprehensive Metabolic Panel (01/08/21 19:59) Drug Screen Stat (Urine) (01/08/21 19:59) Hcg,Qualitative Serum (01/08/21 19:59) Magnesium (01/08/21 19:59) Ua Culture If Indicated (01/08/21 19:59) Ed Iv/Invasive Line Start (01/08/21 19:59) Lactated Ringers (Lr 1000 Ml Iv Solution (01/08/21 20:00) Covid 19 Inhouse Test (01/08/21 19:59) Medications Given in ED Current Medications Medications Dose Ordered Sig/Sri Route Start Time Stop Time Status Last Admin Dose Admin Lactated Ringer's 1,000 ml @ 0 mls/hr Q0M ONCE IV 01/08/21 20:00 01/08/21 20:02 DC 01/08/21 20:16 0 MLS/HR Vital Signs/I&O 01/08/21 01/08/21 19:51 21:06 Temp 36.8 Pulse 86 65 Resp 18 20 B/P (MAP) 119/83 (95) 100/76 Pulse Ox 99 100 O2 Delivery Room Air Capillary Refill : Less Than 3 Seconds Blood Pressure Mean: 95 Progress Note : Progress Note GIVEN IV FLUIDS UNEVENTFUL ER STAY PT HAD NO COMPLAINTS PT SLEPT THROUGH MOST OF ER STAY Departure Impression Primary Impression: CHRONIC IV DRUG ABUSE 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 Decision time for Depature: 21:00 Referrals: [facility] (PCP/Family) Primary Care Physician Patient Instructions: Drug Abuse and Drug Addiction (DC), Drug Abuse Treatment Add. Discharge Instructions: LOTS OF CLEAR LIQUIDS--WATER, BROTH, JELLO, GATORADE FOLLOW UP WITH [facility] FOR OUTPATIENT SUBSTANCE ABUSE TREATMENT OR WITH [facility] FOR INPATIENT SUBSTANCE ABUSE TREATMENT All discharge instructions reviewed with patient and/or family. Voiced understanding. SHERYL HUITRON DO Jan 08, 2021 20:04
[2021-01-08 20:10] LABS: BILIRUBIN,URINE NEGATIVE (NEGATIVE); CLARITY,URINE SL CLOUDY; COLOR,URINE YELLOW; GLUCOSE, URINE (UA) NEGATIVE (NEGATIVE); KETONES,URINE TRACE (NEGATIVE); LEUKOCYTE ESTERASE ,URINE NEGATIVE (NEGATIVE); NITRITE,URINE NEGATIVE (NEGATIVE); PROTEIN,URINE NEGATIVE (NEGATIVE)
[2021-01-08 20:15] LABS: BACTERIA,URINE TRACE /HPF; WBC,URINE 0-2 /HPF
[2021-01-08 20:20] LABS: AMPHETAMINE SCREEN, URINE POSITIVE (NEGATIVE); BARBITURATE SCREEN URINE NEGATIVE (NEGATIVE); BENZODIAZEPINES SCREEN URINE NEGATIVE (NEGATIVE); CANNABINOID SCREEN, URINE NEGATIVE (NEGATIVE); COCAINE SCREEN URINE NEGATIVE (NEGATIVE); METHADONE STAT NEGATIVE (NEGATIVE); METHAMPHETAMINE SCREEN URINE S POSITIVE (NEGATIVE); OPIATE SCREEN URINE NEGATIVE (NEGATIVE); OXYCODONE STAT NEGATIVE (NEGATIVE); PROPOXYPHENE STAT NEGATIVE (NEGATIVE); TRICYCLIC ANTIDEPRESSANTS SCRE NEGATIVE (NEGATIVE)
[2021-01-08 20:23] LABS: BASOPHILS % (AUTO) 1 % (0-10); EOSINOPHILS # (AUTO) 0.2 10^3/uL (0.0-0.3); EOSINOPHILS % (AUTO) 3 % (0-10); HEMATOCRIT 36 % (35-52); LYMPHOCYTES # (AUTO) 2.2 10^3/uL (1.0-4.0); LYMPHOCYTES % (AUTO) 27 % (12-44); MEAN CORPUSCULAR HEMOGLOBIN 30 pg (25-34); MEAN CORPUSCULAR HGB CONC 33 g/dL (32-36); MEAN CORPUSCULAR VOLUME 90 fL (80-99); MEAN PLATELET VOLUME 9.5 fL (9.0-12.2); MONOCYTES # (AUTO) 0.5 10^3/uL (0.0-1.0); MONOCYTES % (AUTO) 6 % (0-12); NEUTROPHILS # (AUTO) 5.1 10^3/uL (1.8-7.8); NEUTROPHILS % (AUTO) 63 % (42-75); PLATELET COUNT 314 10^3/uL (130-400)
[2021-01-08 20:45] LABS: ALBUMIN 3.6 GM/DL (3.2-4.5); CHLORIDE 105 MMOL/L (98-107); POTASSIUM 3.9 MMOL/L (3.6-5.0); SODIUM 139 MMOL/L (135-145)
[2021-01-08 20:46] LABS: CALCIUM 8.8 MG/DL (8.5-10.1)
[2021-01-08 20:47] LABS: GLUCOSE 130 MG/DL (70-105); TOTAL PROTEIN 6.8 GM/DL (6.4-8.2)
[2021-01-08 20:48] LABS: CARBON DIOXIDE 24 MMOL/L (21-32)
[2021-01-08 20:49] LABS: BILIRUBIN,TOTAL 0.6 MG/DL (0.1-1.0)
[2021-01-08 20:51] LABS: ALKALINE PHOSPHATASE 63 U/L (40-136); GFR ESTIMATED > 60
[2021-01-08 20:52] LABS: BUN/CREATININE RATIO 11
[2021-01-08 20:54] LABS: ALANINE AMINOTRANSFERASE 10 U/L (0-55); MAGNESIUM 2.1 MG/DL (1.6-2.4)
[2021-01-08 20:57] LABS: ACETAMINOPHEN < 10 UG/ML (10-30)
[2021-01-08 21:06] VITALS: BP 100/76
== END 2021-01-08 21:08 | disposition home or self-care (01) ==
LOC: EDUNIT# 19:46 → ER 19:48
DX: F15.10 Other stimulant abuse, uncomplicated (principal); F14.10 Cocaine abuse, uncomplicated; F11.10 Opioid abuse, uncomplicated; F41.9 Anxiety disorder, unspecified; Z79.899 Other long term (current) drug therapy; Z59.0 Homelessness; Z20.822 Contact with and (suspected) exposure to COVID-19
CPT/HCPCS: 80053; 80306; 81000; 83735; 84703 ×2; 85025; 87636; 93041; 99284; G0480 ×2; 36415; 80320; 80329

== ENCOUNTER 2021-01-16 18:23 | Emergency (ER) | payer MEDICAID ==
[2021-01-16 19:05] VITALS: BP 152/105
[2021-01-16] MEDS ORDERED: LORazepam 0.5 MG (ATIVAN) TABLET PO STA (19:05)
--- NOTE | 2021-01-16 19:07 | ED General ---
General Stated Complaint: CRAVING DRUG USE Source of Information: Patient Exam Limitations: No Limitations History of Present Illness Date Seen by Provider: Jan 16, 2021 Time Seen by Provider: 19:06 Initial Comments To ER by private vehicle accompanied by a grain operations manager [facility] with reports that she is craving drugs. 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 Timing/Duration: 1-2 Days Allergies and Home Medications Allergies Coded Allergies: Cephalosporins (Verified Allergy, Unknown, 11/26/15) Penicillins (Verified Allergy, Unknown, 09/23/07) adhesive (Verified Allergy, Unknown, 09/23/07) benzocaine (Verified Allergy, Unknown, 09/23/07) latex (Verified Allergy, Unknown, 09/23/07) nitrofurantoin (Verified Allergy, Unknown, 10/16/13) Home Medications Butalb/Acetaminophen/Caffeine 1 Each Capsule, 1 EACH PO Q6H PRN for HEADACHE Prescribed by: BOBBY SCHMITZ on 02/19/17 1906 Ciprofloxacin HCl 500 Mg Tablet, 500 MG PO BID Prescribed by: MARIE KANG MD on 04/06/19 0920 Ciprofloxacin HCl 500 Mg Tablet, 500 MG PO BID Prescribed by: BARAK BASSETT on 09/29/20 1408 Hydrocodone/Acetaminophen 1 Each Tablet, 1-2 EACH PO Q6H PRN for PAIN-MODERATE Prescribed by: MARIE KNAG MD on 04/06/19 0921 Hydroxyzine HCl 25 Mg Tablet, 25 MG PO Q6H PRN for ANXIETY Prescribed by: ENRIQUE DINH on 11/29/19 1752 Metronidazole 500 Mg Tablet, 500 MG PO BID Prescribed by: BARAK BASSETT on 09/29/20 1408 Phenazopyridine HCl 200 Mg Tablet, 1 TAB PO TID Prescribed by: MARIE KANG MD on 04/06/19 0920 Tramadol HCl 50 Mg Tablet, 50 MG PO Q6H PRN for PAIN Prescribed by: RU HERNANDEZ on 07/14/20 0205 Patient Home Medication List Home Medication List Reviewed: Yes Review of Systems Review of Systems Constitutional: see HPI EENTM: see HPI Respiratory: no symptoms reported Cardiovascular: no symptoms reported Genitourinary: no symptoms reported Musculoskeletal: no symptoms reported Skin: no symptoms reported Psychiatric/Neurological: See HPI Hematologic/Lymphatic: No Symptoms Reported Immunological/Allergic: no symptoms reported Past Qdvbucd-Dpsymv-Haiaip Hx Patient Social History Drug of Choice: + IV FENTANYL, + METH ++ COCAINE 2nd Hand Smoke Exposure: No Recent Hopitalizations: No Immunizations Up To Date Tetanus Booster (TDap): Less than 5yrs Date of Pneumonia Vaccine: Apr 29, 2012 Date of Influenza Vaccine: May 20, 2015 Seasonal Allergies Seasonal Allergies: No Past Medical History Surgeries: Yes (EXPLORATORY LAP FOR CYST, DISLOCATED left SHOULDER, cryotherapy on cervix, ) Abdominal, Appendectomy, Section, Orthopedic, Tubal Ligation Respiratory: No Cardiac: No Neurological: Yes Headaches /Migraines Reproductive Disorders: Yes (CERVICAL DYSPLASIA) Sexually Transmitted Disease: Yes (HPV 2005) Genitourinary: No 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) Musculoskeletal: Yes (HX OF DISLOCATED SHOULDER) Endocrine: No HEENT: No Cancer: No Psychosocial: Yes ( depression) Anxiety, Depression Integumentary: No Blood Disorders: No Family Medical History Alcoholism 03 FATHER 09 BROTHER Drug abuse 03 FATHER 09 BROTHER Family history: Hypertension Heart disease 03 MOTHER Hypertension 09 BROTHER Myocardial infarction 03 MOTHER Psychosocial problem 03 FATHER 03 MOTHER 09 BROTHER No Family History of: Abdominal aortic aneurysm Cancer Dementia Family history: Alzheimer's disease Family history: Arthritis Family history: Asthma Family history: Breast disease Family history: Cardiovascular disease Family history: Diabetes mellitus Family history: Gastrointestinal disease Family history: Osteoporosis Family history: Thyroid disorder Hereditary disease History of - respiratory disease Kidney disease Prostate cancer Psychotic disorder Seizure disorder Stroke No Pertinent Family Hx PAST SURGICAL HISTORY: -PT HAD PARTIAL GASTRECTOMY BARIATRIC SURGERY, THEN HAD EXPLORATORY LAP FOR "NICKED SPLEEN" DURING PROCEDURE--ALL PER PATEINT--NO PHYSICIAN VERIFICATION OF THIS -LEFT SHOULDER SURGERY FOR RECURRENT DISLOCATIONS - X 2 -BILATERAL TUBAL LIGATION -CRYOTHERAPY TREATMENT AND POSSIBLE LEEP OF CERVIX FOR DYSPLASIA -08/2007--EXPLORATORY LAPAROSCOPY FOR OVARIAN CYST Physical Exam Vital Signs Capillary Refill : Height, Weight, BMI Height: 5'6.00" Weight: 192lbs. 0.0oz. 87.110179js; 19.00 BMI Method:Stated General Appearance: No Apparent Distress, WD/WN, Anxious Eyes: Bilateral Eye Normal Inspection, Bilateral Eye PERRL Neck: Full Range of Motion, Normal Inspection Respiratory: No Accessory Muscle Use, No Respiratory Distress Extremity: Normal Capillary Refill, Normal Inspection Neurologic/Psychiatric: Alert, Oriented x3 Skin: Normal Color, Warm/Dry Progress/Results/Core Measures Suspected Sepsis SIRS Temperature: Pulse: Respiratory Rate: Blood Pressure / Mean: Results/Orders My Orders Orders - ENRIQUE DINH APRN Lorazepam Tablet (Ativan Tablet) (01/16/21 19:05) Vital Signs/I&O Capillary Refill : Departure Impression Primary Impression: Addiction Disposition: 01 HOME, SELF-CARE Condition: Stable Departure-Patient Inst. Decision time for Depature: 19:07 Referrals: [facility] (PCP/Family) Primary Care Physician Patient Instructions: Drug Abuse Treatment ENRIQUE DINH APRN Jan 16, 2021 19:07
== END 2021-01-16 19:15 | disposition home or self-care (01) ==
LOC: EDUNIT# 18:23 → ER 18:24
DX: F19.20 Other psychoactive substance dependence, uncomplicated (principal); F41.9 Anxiety disorder, unspecified; Z79.899 Other long term (current) drug therapy
CPT/HCPCS: 99283